=== PATIENT | male | born 1955 | race Caucasian/White ===

== ENCOUNTER 2020-07-06 15:17 | Outpatient (REF) | payer BC, SELFPAY ==
--- NOTE | 2020-07-06 15:24 | XR_ITS ---
EXAMINATION: XR LUMBOSACRAL SPINE CLINICAL INFORMATION: Back pain COMPARISON: None TECHNIQUE: Three views of the lumbosacral spine. FINDINGS: 5 nonrib-bearing lumbar type vertebral bodies are seen. Minimal 4 mm anterolisthesis of L4 on L5. Lower lumbar facet arthropathy, particularly on the right. Mild disc space narrowing at L5-S1. There is right lateral marginal osteophytosis across L2-3. No compression fracture. XR/XR lumbar spine 2-3V IMPRESSION: No acute osseous abnormality. Degenerative disc disease and facet arthropathy of the lower lumbar spine as described above.
== END 2020-07-06 15:18 | disposition home or self-care (01) ==
LOC: HO.XRAY 15:17
PROVIDERS: Visit Provider Internal Medicine
DX: M54.9 Dorsalgia, unspecified (principal)
CPT/HCPCS: 72100

== ENCOUNTER 2020-07-16 06:27 | Outpatient (REF) | payer BC, SELFPAY ==
[2020-07-16 11:15] LABS: MANUAL DIFF FLAG NO
[2020-07-16 11:25] LABS: Glucose Urine UA NEG (NEG); Leukocyte Esterase Urine NEG (NEG); Nitrite Urine NEG (NEG); PH 5.5 (5.0-8.0); Specific Gravity - Urine >= 1.030 (1.005-1.025); Urine Blood NEG (NEG); Urine Ketones NEG (NEG); Urine Protein NEG (NEG-TRACE)
[2020-07-16 11:26] LABS: Appearance Urine HAZY; Color Urine YELLOW
[2020-07-16 11:29] LABS: Basophils Absolute Auto 0.1 X10*3/uL (0.0-0.2); Eosinophils Absolute Auto 0.2 X10*3/uL (0.0-0.4); Hematocrit 43.3 % (42-52); Hemoglobin 14.1 g/dl (14.0-18.0); Imm Gran Abs Auto 0.02 X10*3/uL (0.00-0.03); Imm Gran Pct Auto 0.3 % (0.0-0.4); Lymphocytes Absolute Auto 2.2 X10*3/uL (1.2-4.9); Lymphocytes Percent Auto 37.5 % (20-40); Mean Corpuscular HGB Conc 32.6 g/dl (31.0-36.0); Mean Corpuscular Volume 98.4 fL (80-98); Mean Platelet Volume 11.4 fL (9.4-12.4); Monocytes Absolute Auto 0.6 X10*3/uL (0.1-1.2); Monocytes Percent Auto 10.4 % (2-11); Neutrophils Absolute Auto 2.8 X10*3/uL (2.0-8.3); Neutrophils Percent Auto 46.8 % (45-73); Platelet Count 201 X10*3/uL (160-400); Red Cell Distribution Width 13.2 % (11.0-16.0)
[2020-07-16 12:07] LABS: Alanine Aminotransferase 44 U/L (0-40); Albumin Level 4.4 g/dL (3.5-5.0); Alkaline Phosphatase 80 U/L (39-117); Anion Gap 16 (12-20); Aspartate Amino Transferase 26 U/L (5-37); Bilirubin Total 0.6 mg/dL (0.0-1.0); Blood Urea Nitrogen 19 mg/dL (9-16); Calcium 8.9 mg/dL (8.4-10.2); Carbon Dioxide 26 mmol/L (22-29); Chloride 105 mmol/L (96-108); Cholesterol 180 mg/dL; Estimated Glomerular Filt Rate > 60; Glucose Fasting 94 mg/dL (60-99); HDL Cholesterol 52 mg/dL; LDL Cholesterol Calculated 103 mg/dl; Potassium 4.5 mmol/l (3.3-5.1); Sodium 142 mmol/L (135-145); Triglycerides 128 mg/dL
== END 2020-07-16 06:28 | disposition home or self-care (01) ==
LOC: HO.HMGCLDS 06:27
PROVIDERS: PCP Internal Medicine; Visit Provider Internal Medicine
DX: Z00.00 Encounter for general adult medical examination without abnormal findings (principal); Z12.5 Encounter for screening for malignant neoplasm of prostate
CPT/HCPCS: 36415; 80053; 80061; 81003; 84153; 85025

== ENCOUNTER 2020-07-26 10:44 | Outpatient (REF) | payer BC, SELFPAY ==
--- NOTE | 2020-07-26 10:59 | XR_ITS ---
EXAMINATION: XR LUMBOSACRAL SPINE CLINICAL INFORMATION: Fall, trauma, pain COMPARISON: Radiographs lumbar spine 07/06/2020. TECHNIQUE: Three views of the lumbosacral spine. FINDINGS: Lumbosacral spine appears similar to recent exam 07/06/2020. There is normal lumbar segmentation with 5 nonrib-bearing lumbar vertebrae and probable incidental spina bifida occulta at S1. There is normal lumbar lordosis. No lumbar vertebral compression or destructive process. Again, there are degenerative facet changes L4-S1 and mild degenerative changes SI joints. There are scattered bridging osteophytes lower thoracic and lumbar spine again seen. Borderline grade 0-1 spondylolisthesis L4-L5 is again noted. XR/XR lumbar spine 2-3V IMPRESSION: 1. No acute abnormality when compared with recent exam 07/06/2020. 2. Variable degenerative changes lower thoracic and lumbosacral spine again seen. 3. Grade 0-1 spondylolisthesis L4-L5 stable.
== END 2020-07-26 10:45 | disposition home or self-care (01) ==
LOC: HO.XRAY 10:44
PROVIDERS: PCP Internal Medicine; Visit Provider Internal Medicine
DX: M54.9 Dorsalgia, unspecified (principal); Z91.81 History of falling
CPT/HCPCS: 72100

== ENCOUNTER 2020-10-06 08:03 | Day surgery (SDC) | payer BC, SELFPAY ==
[2020-09-30 12:58] VITALS: BMI 30.5
--- NOTE | 2020-10-04 14:53 | HO.ANESPROP2 ---
Documented by User: Leeanne Wellington 10/04/20 14:55 HPI - Anesthesia Eval Consult details Narrative: 64yo M for Colonoscopy +ETOH daily [facility] Past Medical History Medical History Elevated cholesterol Hx of concussion Low back pain Surgical History Surgical History H/O right knee surgery History of shoulder surgery Hx of colonoscopy Social History Social History Alcohol intake: current Alcohol intake frequency: 3 or more drinks per day Alcohol type: beer Smoking Status: Never smoker Use of substances other than those prescribed or required for medical reasons: No Advance Directives: No Advance Directives Information Provided: No Advance Directives on File: No Meds Allergies Allergy/AdvReac Type Severity Reaction Status Date / Time Sulfa (Sulfonamide Allergy Mild Rash Verified 09/30/20 12:52 Antibiotics) Home Medications Medication Instructions Recorded Confirmed Type atorvastatin 1 tab PO DAILY 09/30/20 09/30/20 History glucosamines, HCl, sulf,acetyl tab PO 09/30/20 History [Glucosamine Complex] multivitamin 1 tab PO DAILY 09/30/20 09/30/20 History Exam Exam Date and Time: October 04, 2020 1453 Height,Weight and Vital Signs: Height 6 ft Weight 102.058 kg Pertinent Lab Results Pertinent Lab Results: Laboratory Tests 07/16/20 07/16/20 06:40 06:40 WBC 6.0 Hgb 14.1 Hct 43.3 Plt Count 201 Sodium 142 Potassium 4.5 Chloride 105 Carbon Dioxide 26 BUN 19 H Creatinine 0.83 Assessment and Plan Assessment Anesthesia Assessment: Chart Reviewed Documented by User: Shawna Ayala 10/06/20 09:12 PMFSH Past Medical History Medical History Elevated cholesterol Hx of concussion Low back pain Surgical History Surgical History H/O right knee surgery History of shoulder surgery Hx of colonoscopy Social History Social History Alcohol intake: current Alcohol intake frequency: 3 or more drinks per day Alcohol type: beer Smoking Status: Never smoker Use of substances other than those prescribed or required for medical reasons: No Advance Directives: No Advance Directives Information Provided: No Advance Directives on File: No Meds Allergies Allergy/AdvReac Type Severity Reaction Status Date / Time Sulfa (Sulfonamide Allergy Mild Rash Verified 09/30/20 12:52 Antibiotics) Home Medications Medication Instructions Recorded Confirmed Type atorvastatin 1 tab PO DAILY 09/30/20 09/30/20 History glucosamines, HCl, sulf,acetyl tab PO 09/30/20 History [Glucosamine Complex] multivitamin 1 tab PO DAILY 09/30/20 09/30/20 History Exam Airway Mallampati Class: II TM Dist: >3cm Neck ROM: Full Assessment and Plan Assessment Anesthesia Assessment: Anesthesia Plan Discussed and Chart Reviewed Final Anesthetic Review NPO: Yes ASA Class: II Final Preanesthetic Review: No Changes in Pt Med Stat, Meds/Allgs Chart Reviewed, Consent Obtained/Reviewed and Anes Risks/Benef Reviewed Patient Risk: Low Procedure Risk: Low Assessment/Block/Sedation in SS: Assess/Block/Sedation-SS Anesthetic Plan Anesthetic Plan: MAC: Disposition: Standard PACU
[2020-10-06 08:35] VITALS: BP 149/82; PULSE 72; RESP 16; TEMP 36; O2SAT 98
[2020-10-06] MEDS: Lactated Ringers 1,000 ML 100 ML IVCONT (08:47)
--- NOTE | 2020-10-06 10:32 | PM.OP ---
Brief Operative Note Date of Service: 10/06/20 Pre-op diagnosis: Screening Post-op diagnosis: other (Colon polyps, Diverticulosis, Internal hemorrhoids) Procedure: Colonoscopy to cecum and TI with snare polypectomy x 2 Surgeon: Ben Morgan Anesthesia: MAC Estimated blood loss (mL): 3.0 Pathology: other (A. Proximal ascending colon polyp B. Transverse colon polyp) Condition: stable Disposition: PACU
[2020-10-06 10:33] VITALS: BP 141/79; PULSE 65; RESP 16; TEMP 36.1; O2SAT 98
--- NOTE | 2020-10-06 10:46 | OP_ITS ---
SURGEON: Ben Morgan MD INDICATIONS: Full consent has been obtained from him for this, including risks of bleeding and perforation. PREOPERATIVE DIAGNOSIS: Colorectal cancer screening. POSTOPERATIVE DIAGNOSIS: PROCEDURE PERFORMED: Colonoscopy to cecum and terminal ileum with snare polypectomy. ESTIMATED BLOOD LOSS: COMPLICATIONS: ANESTHESIA: Monitored anesthesia care. ASSISTANTS: SPECIMENS: POSTOPERATIVE DIAGNOSES: Colorectal cancer screening, colon polyps, diverticulosis, and internal hemorrhoids. DESCRIPTION OF PROCEDURE: The patient was placed in the left lateral decubitus position. The digital rectal exam revealed no abnormalities. The Olympus video pediatric colonoscope was entered into the rectum and advanced easily to the cecum. Once in the cecum, I did identify normal-appearing cecal pouch with appendiceal orifice and a normal-appearing ileocecal valve. The terminal ileum was cannulated and appeared normal. The scope was withdrawn back in the colon. The entire cecum and ileocecal valve appeared normal. The scope was slowly withdrawn assessing all mucosal surfaces carefully. Preparation was excellent. In the very proximal ascending colon, just beneath the ileocecal valve, was a flat, but raised approximately 10 to 12 mm polyp, which was snared and recovered by suction. The polypectomy site appeared clean, without any sign of residual polyp nor bleeding. In the transverse colon, was an approximately 6 to 8 mm polyp, which was snared and recovered by suction. The polypectomy site appeared clean, without any sign of residual polyp nor bleeding. I did not visualize any other polyps, colitis, nor angiodysplasia. There was a mild amount of sigmoid diverticulosis. In the rectum, scope was retroflexed visualizing internal hemorrhoids, but no other pathology. The rectal mucosa appeared normal. The scope was straightened out and withdrawn from the patient. He tolerated the procedure well and was returned to the recovery area in stable condition. IMPRESSION: 1. Colon polyps, status post snare polypectomy. 2. Diverticulosis. 3. Internal hemorrhoids. PLAN: The results of the pathology will be checked. If these are tubular adenoma, I would recommend a followup colonoscopy in 5 years. If they are only hyperplastic, I would recommend a followup colonoscopy in 10 years. He was advised not to use any aspirin or NSAIDs for 1 week. MD YOLANDA Donahue/ROSLYN / [id number]
[2020-10-06 10:48] VITALS: BP 158/87; PULSE 54; RESP 16; TEMP 36.1; O2SAT 98
--- NOTE | 2020-10-06 11:04 | HO.POSTANES ---
Post Anesthesia Evaluation Post Anesthesia Evaluation Vital Signs: Vital Signs Temp Pulse Resp BP Pulse Ox 10/06/20 10:48 97.0 F 54 16 158/87 H 98 10/06/20 10:33 97.0 F 65 16 141/79 H 98 10/06/20 08:35 96.8 F 72 16 149/82 H 98 Anesthesia: Monitored Mental Status: Awake Pain Control: Satisfactory Nausea/Vomiting: None Hydration: Adequate Anesthesia-Related Issues: No Anes. Related Issues
== END 2020-10-06 11:17 | disposition home or self-care (01) ==
PROVIDERS: PCP Internal Medicine; Visit Provider Internal Medicine
PROC: 0DJD8ZZ Inspection of Lower Intestinal Tract, Via Natural or Artificial Opening Endoscopic (ICD-10-PCS; CPT 45378; principal; 2020-10-06 09:10)
DX: Z12.11 Encounter for screening for malignant neoplasm of colon (principal); D12.2 Benign neoplasm of ascending colon; D12.3 Benign neoplasm of transverse colon; K57.30 Diverticulosis of large intestine without perforation or abscess without bleeding; K64.8 Other hemorrhoids; Z88.2 Allergy status to sulfonamides
CPT/HCPCS: 45385; 88305; J3010

== ENCOUNTER 2021-08-10 14:18 | Outpatient (REF) | payer BC, SELFPAY ==
[2021-08-10 15:54] LABS: Influenza A PCR NEGATIVE (Negative); Influenza B PCR NEGATIVE (Negative); Resp Syncy Virus RNA Qual PCR NEGATIVE (Negative); SARS COV2 PCR INHOUSE NEGATIVE (Negative)
== END 2021-08-10 14:19 | disposition home or self-care (01) ==
LOC: HO.LNP 14:18
PROVIDERS: Visit Provider Internal Medicine
DX: Z20.822 Contact with and (suspected) exposure to COVID-19 (principal)
CPT/HCPCS: 0241U

== ENCOUNTER 2021-09-21 08:52 | Outpatient (REF) | payer BC, SELFPAY ==
[2021-09-21 09:11] LABS: MANUAL DIFF FLAG NO
[2021-09-21 09:52] LABS: Basophils Absolute Auto 0.1 X10*3/uL (0.0-0.2); Eosinophils Absolute Auto 0.2 X10*3/uL (0.0-0.4); Eosinophils Percent Auto 3.7 % (0-4); Hematocrit 44.2 % (42.0-52.0); Hemoglobin 14.7 g/dl (14.0-18.0); Imm Gran Abs Auto 0.01 X10*3/uL (0.00-0.03); Imm Gran Pct Auto 0.2 % (0.0-0.4); Lymphocytes Absolute Auto 2.4 X10*3/uL (1.2-4.9); Lymphocytes Percent Auto 40.4 % (20-40); Mean Corpuscular HGB Conc 33.3 g/dl (31.0-36.0); Mean Corpuscular Volume 96.1 fL (80.0-98.0); Mean Platelet Volume 10.5 fL (9.4-12.4); Monocytes Absolute Auto 0.6 X10*3/uL (0.1-1.2); Monocytes Percent Auto 9.9 % (2-11); Neutrophils Absolute Auto 2.7 x10*3/uL (2.0-8.3); Neutrophils Percent Auto 44.8 % (45-73); Platelet Count 246 X10*3/uL (160-400); Red Cell Distribution Width 12.7 % (11.0-16.0); White Blood Count 5.9 X10*3/uL (4.8-10.8)
[2021-09-21 10:03] LABS: Alanine Aminotransferase 37 U/L (0-40); Albumin Level 4.3 g/dL (3.5-5.0); Alkaline Phosphatase 85 U/L (39-117); Anion Gap 12 (12-20); Aspartate Amino Transferase 24 U/L (5-37); Bilirubin Total 0.3 mg/dL (0.0-1.0); Blood Urea Nitrogen 17 mg/dL (9-16); C Reactive Protein 0.75 mg/dL (< or = 0.50); Calcium 10.2 mg/dL (8.4-10.2); Carbon Dioxide 28 mmol/L (22-29); Chloride 108 mmol/L (96-108); Cholesterol 186 mg/dL; Estimated Glomerular Filt Rate > 60; Glucose Fasting 111 mg/dL (60-99); HDL Cholesterol 44 mg/dL; LDL Cholesterol Calculated 124 mg/dl; Potassium 4.8 mmol/L (3.3-5.1); Sodium 143 mmol/L (135-145); Total Protein 7.3 g/dL (6.5-8.0); Triglycerides 94 mg/dL; Uric Acid 6.3 mg/dL (3.4-7.0)
[2021-09-21 10:10] LABS: Appearance Urine CLEAR; Color Urine YELLOW; Glucose Urine UA NEG (NEG); Leukocyte Esterase Urine NEG (NEG); Nitrite Urine NEG (NEG); PH 5.5 (5.0-8.0); Specific Gravity - Urine 1.025 (1.005-1.025); Urine Blood NEG (NEG); Urine Ketones NEG (NEG); Urine Protein NEG (NEG-TRACE)
[2021-09-21 10:28] LABS: Prostate Specific Antigen 0.32 ng/mL (<0.05-4.0)
== END 2021-09-21 08:53 | disposition home or self-care (01) ==
LOC: HO.LAB 08:52
PROVIDERS: PCP Internal Medicine; Visit Provider Internal Medicine
DX: E78.00 Pure hypercholesterolemia, unspecified (principal); M10.9 Gout, unspecified; Z86.010 Personal history of colon polyps
CPT/HCPCS: 36415; 80053; 80061; 81003; 84153; 84550; 85025; 86140

== ENCOUNTER 2022-12-19 11:51 | Outpatient (REF) | payer BC, SELFPAY ==
--- NOTE | ~2022-12-19 | XR_ITS ---
EXAMINATION: XR CHEST CLINICAL INFORMATION: Right chest and back pain. COMPARISON: Chest radiographs 01/15/2019, 05/22/2015 TECHNIQUE: 2 frontal views and 2 lateral views of the chest are obtained for 4 views. FINDINGS: No pneumothorax or pneumomediastinum. No pleural reaction or effusion. The lungs are clear. There is no airspace consolidation or effusion. Heart size normal. The hilar and mediastinal contours are normal. No acute bony abnormality. Again, there is mild thoracic curvature and multilevel mild degenerative disc changes thoracic spine. XR/XR chest 2V IMPRESSION: Unremarkable examination.
[2022-12-19 14:06] LABS: Anion Gap 14 (12-20); Blood Urea Nitrogen 13 mg/dL (9-16); C Reactive Protein 0.14 mg/dL (< or = 0.50); Calcium 9.6 mg/dL (8.4-10.2); Carbon Dioxide 25 mmol/L (22-29); Chloride 107 mmol/L (96-108); Estimated Glomerular Filt Rate > 60; Glucose Random 104 mg/dL (60-115); Potassium 4.7 mmol/L (3.3-5.1); Sodium 141 mmol/L (135-145)
[2022-12-19 14:09] LABS: Estimated Average Glucose 111 mg/dL; Hemoglobin A1c % 5.5 %
[2022-12-19 14:10] LABS: Erythrocyte Sedimentation Rate 8 MM/HR (0-15)
[2022-12-21 13:28] LABS: Lyme Abs Screen <0.90 index
== END 2022-12-19 11:52 | disposition home or self-care (01) ==
LOC: HO.LAB 11:51
PROVIDERS: PCP Internal Medicine; Visit Provider Internal Medicine
DX: R07.9 Chest pain, unspecified (principal); M54.9 Dorsalgia, unspecified; R73.03 Prediabetes
CPT/HCPCS: 36415; 71046; 80048; 83036; 85652; 86140; 86617; 86618

== ENCOUNTER 2023-06-11 16:16 | Outpatient (REF) | payer BC, SELFPAY ==
--- NOTE | ~2023-06-11 | XR_ITS ---
EXAMINATION: XR LUMBOSACRAL SPINE CLINICAL INFORMATION: Lower back pain COMPARISON: None available. TECHNIQUE: Three views of the lumbosacral spine. FINDINGS: There is normal lumbar lordosis. Grade 1 anterolisthesis L4-L5 is noted. Rest of the vertebral alignment is normal. There is moderate right L4-L5 facet joint hypertrophy and arthropathy. There is a right lateral bridging osteophyte L2-L3 disc level. No acute fracture, lytic or sclerotic process seen. SI joints are symmetrical and normal. The paravertebral soft tissues are normal. XR/XR lumbar spine 2-3V IMPRESSION: 1. Grade 1 anterolisthesis L4 over L5 with moderate right L4-L5 facet joint arthropathy. 2. There is a right lateral bridging osteophyte L2-L3 disc level.
[2023-06-11 16:29] LABS: MANUAL DIFF FLAG NO
[2023-06-11 16:59] LABS: Basophils Absolute Auto 0.1 X10*3/uL (0.0-0.2); Basophils Percent Auto 0.8 % (0-2); Eosinophils Absolute Auto 0.2 X10*3/uL (0.0-0.4); Eosinophils Percent Auto 1.8 % (0-4); Hematocrit 39.1 % (42.0-52.0); Hemoglobin 12.6 g/dl (14.0-18.0); Imm Gran Abs Auto 0.06 X10*3/uL (0.00-0.03); Imm Gran Pct Auto 0.5 % (0.0-0.4); Lymphocytes Absolute Auto 2.2 X10*3/uL (1.2-4.9); Lymphocytes Percent Auto 16.8 % (20-40); Mean Corpuscular HGB Conc 32.2 g/dl (31.0-36.0); Mean Corpuscular Hemoglobin 30.5 pg (27.0-33.0); Mean Corpuscular Volume 94.7 fL (80.0-98.0); Mean Platelet Volume 9.7 fL (9.4-12.4); Monocytes Absolute Auto 1.2 X10*3/uL (0.1-1.2); Monocytes Percent Auto 8.8 % (2-11); Neutrophils Absolute Auto 9.4 x10*3/uL (2.0-8.3); Neutrophils Percent Auto 71.3 % (45-73); Platelet Count 488 X10*3/uL (160-400); Red Blood Count 4.13 X10*6/uL (4.60-5.80); Red Cell Distribution Width 12.6 % (11.0-16.0); White Blood Count 13.1 X10*3/uL (4.8-10.8)
[2023-06-11 17:51] LABS: Alanine Aminotransferase 85 U/L (0-40); Albumin Level 3.6 g/dL (3.5-5.0); Alkaline Phosphatase 147 U/L (39-117); Anion Gap 16 (12-20); Aspartate Amino Transferase 41 U/L (5-37); Bilirubin Total 0.3 mg/dL (0.0-1.0); Blood Urea Nitrogen 14 mg/dL (9-16); Carbon Dioxide 25 mmol/L (22-29); Chloride 105 mmol/L (96-108); Estimated Glomerular Filt Rate > 60; Glucose Random 103 mg/dL (60-115); Potassium 4.4 mmol/L (3.3-5.1); Sodium 142 mmol/L (135-145); Total Protein 7.5 g/dL (6.5-8.0)
== END 2023-06-11 16:17 | disposition home or self-care (01) ==
LOC: HO.LAB 16:16
PROVIDERS: PCP Internal Medicine; Visit Provider Internal Medicine
DX: M54.50 Low back pain, unspecified (principal)
CPT/HCPCS: 36415; 72100; 80053; 85025; 86140

== ENCOUNTER 2023-06-14 15:20 | Outpatient (REF) | payer BC, SELFPAY ==
--- NOTE | ~2023-06-14 | US_ITS ---
EXAMINATION: US ABDOMEN COMPLETE CLINICAL INFORMATION: Abdominal pain, elevated LFTs. COMPARISON: None available. TECHNIQUE: Real-time imaging of the abdominal viscera. Limited visualization due to bowel gas. FINDINGS: PANCREAS: Poorly visualized. ABDOMINAL AORTA: Limited visualization. Imaged portions of mid abdominal aorta are nonaneurysmal. INFERIOR VENA CAVA: Visualized portions are normal. LIVER: Increased parenchymal heterogeneity and echogenicity which could be associated with hepatic steatosis or hepatocellular disease and substantially limits visualization. Borderline hepatomegaly, 17.6 cm. GALLBLADDER: No gallstones. No gallbladder wall thickening. COMMON BILE DUCT: Normal in caliber measuring 0.4 cm in diameter. RIGHT KIDNEY: No hydronephrosis. No renal calculi. Renal cortical thickness is normal. Limited visualization. The kidney measures 11.1 cm in maximum dimension. LEFT KIDNEY: No hydronephrosis. No renal calculi. Renal cortical thickness is normal. Limited visualization. The kidney measures 10.4 cm in maximum dimension. SPLEEN: Normal. The spleen measures 10.2 cm in maximum dimension. FREE FLUID: None. US/US abdomen complete IMPRESSION: 1. Increased hepatic parenchymal heterogeneity and echogenicity which could be associated with hepatic steatosis or hepatocellular disease and substantially limits visualization. Borderline hepatomegaly, 17.6 cm. 2. Gallbladder surgically absent.
== END 2023-06-14 15:21 | disposition home or self-care (01) ==
LOC: HO.US 15:20
PROVIDERS: PCP Internal Medicine; Visit Provider Internal Medicine
DX: R10.84 Generalized abdominal pain (principal); R94.5 Abnormal results of liver function studies
CPT/HCPCS: 76700

== ENCOUNTER 2023-08-06 09:17 | Outpatient (AMB) | payer BC, SELFPAY ==
--- NOTE | 2023-08-06 09:24 | MHC.OFFVIS ---
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 He was recently having lot of tiredness and that led to further workup. He underwent apparently Hematology workup which led to diagnosis of lymphoma per patient and . Pre chemotherapy, he underwent echocardiogram that showed LV dysfunction as well as wall motion abnormalities and hence he has been referred here. There is no history of any coronary disease or myocardial infarction or cardiomyopathy or in fact any other cardiac issues. He is extremely weak because of the lymphoma and he is not able to walk at all. He is coming in a wheelchair. Otherwise, within limits of his activity has not noticed any chest pain or in fact any cardiac symptoms at any point. [facility] Medical History (Updated 08/06/23 @ 10:01 by Hood Burnett MD) Lymphoma Hx of concussion Low back pain Elevated cholesterol Surgical History H/O right knee surgery History of shoulder surgery Hx of colonoscopy Family History (Updated 08/06/23 @ 09:29 by Taylor Dowd) Mother No problems noted. Father Stomach cancer Social History Alcohol intake: current Alcohol intake frequency: 3 or more drinks per day Alcohol type: beer Review of Systems Const Denies chills, Denies daytime sleepiness, Denies fatigue, Denies fever(s), Denies frequent falls, Denies night sweats, Denies snoring, Denies weakness, Denies weight gain and Denies weight loss Eyes Denies loss of vision ENT Denies dizziness and Denies hearing loss Card Denies chest pain, Denies chest pain with activity, Denies syncope, Denies rapid heart rate, Denies edema, Denies claudication, Denies leg edema, Denies lightheadedness, Denies palpitations, Denies dyspnea on exertion and Denies orthopnea Resp Denies cough, Denies excessive phlegm production, Denies dyspnea on exertion, Denies snoring and Denies wheezing GI Denies abdominal pain, Denies hematochezia, Denies change in bowel habits, Denies change in stool character, Denies heartburn, Denies nausea and Denies vomiting Denies hematuria, Denies dysuria and Denies urinary frequency Musc Denies arthralgias, Denies muscle weakness, Denies numbness and Denies tingling Skin/Breast Denies nail changes and Denies rash Neuro Denies Abnormal speech present, Denies dizziness, Denies syncope, Denies frequent falls, Denies loss of vision, Denies memory loss, Denies numbness, Denies tingling and Denies weakness Psych Denies depression and Denies memory loss Endo Denies fatigue and Denies palpitations Aller/Immun Denies wheezing Physical Exam Vital Signs: Last Vital Signs Pulse 91 08/06/23 09:30 BP 100/54 L 08/06/23 09:30 Const General: comfortable and no acute distress Orientation/consciousness: patient oriented x3 HEENT Other: Unremarkable Head: Yes normal to inspection Neck Neck: Yes normal visual inspection Chest Chest palpation & inspection: normal inspection of the chest Resp Auscultation: clear to auscultation bilaterally Cardio Palpation: normal PMI Heart sounds: S1 normal heart sound present, S2 normal heart sound present, no gallops, no murmurs and no rubs GI Palpation (GI): Soft to palpation Back/Spine/Pelvis Other: unremarkable Skin General skin exam: no rashes or lesions noted Neuro General: patient oriented x3 Speech: No Abnormal speech present Extrem General: Yes normal to inspection Psych Mental Status: mental status grossly normal Office Procedures EKG Details: EKG with sinus rhythm at 91/Min; cannot exclude old anterior or inferior infarct; normal [place]. [id number], Complete Assessment & Plan Assessment & Plan (1) Cardiomyopathy: Code(s): I42.9 - Cardiomyopathy, unspecified Qualifiers: Cardiomyopathy type: unspecified Qualified Code(s): I42.9 - Cardiomyopathy, unspecified (2) Lymphoma: Code(s): C85.90 - Non-Hodgkin lymphoma, unspecified, unspecified site (3) Chemotherapy follow-up examination: Code(s): Z09 - Encounter for follow-up examination after completed treatment for conditions other than malignant neoplasm Plan Newly diagnosed lymphoma requiring chemotherapy. Echocardiogram last week from [facility] [place] with LVEF of 40-45%. Distal anteroseptal wall severely hypokinetic. Inferior/inferolateral wall hypokinetic. Diminished strain at 13.4%. Mild to moderately calcified aortic valve but no stenosis. In a prior study from 2015, LVEF of 60-65%. He needs further workup for underlying coronary disease, especially as he needs to start chemotherapy soon. Recommend diagnostic catheterization in this regard. Discussed with patient as well as significant other they agree. We will try to schedule as well as possible. Follow-up after the above. Orders: Orders Cardiac Cath LT Diagnostic Today I25.10 - Atherosclerotic heart disease of [place] coronary artery without angina pectoris, I42.9 - Cardiomyopathy, unspecified Complete Blood Count no Diff Today I42.9 - Cardiomyopathy, unspecified Basic Metabolic Panel Today I42.9 - Cardiomyopathy, unspecified Prothrombin Time INR Today I25.10 - Atherosclerotic heart disease of [place] coronary artery without angina pectoris, I42.9 - Cardiomyopathy, unspecified Coding Level of Care Code New Pt Level 5 (44220) Diagnoses Cardiomyopathy, unspecified type I42.9 Cardiomyopathy type: unspecified Lymphoma C85.90 Chemotherapy follow-up examination Z09 CPT Codes EKG - CPT: 92312-[id number], Complete ([id number])
[2023-08-06 09:30] VITALS: BP 100/54; PULSE 91
== END 2023-08-06 09:57 | disposition home or self-care (01) ==
PROVIDERS: PCP Internal Medicine; Visit Provider Internal Medicine
DX: I42.9 Cardiomyopathy, unspecified (principal); C85.90 Non-Hodgkin lymphoma, unspecified, unspecified site; Z09 Encounter for follow-up examination after completed treatment for conditions other than malignant neoplasm
CPT/HCPCS: 93010; 99214

== ENCOUNTER 2023-08-06 09:17 | Outpatient (REF) | payer BC, SELFPAY ==
[2023-08-06 10:55] LABS: Hematocrit 33.3 % (42.0-52.0); Hemoglobin 10.5 g/dl (14.0-18.0); Mean Corpuscular HGB Conc 31.5 g/dl (31.0-36.0); Mean Corpuscular Hemoglobin 28.1 pg (27.0-33.0); Mean Platelet Volume 9.9 fL (9.4-12.4); Platelet Count 310 X10*3/uL (160-400); Red Blood Count 3.74 X10*6/uL (4.60-5.80); Red Cell Distribution Width 15.9 % (11.0-16.0); White Blood Count 12.5 X10*3/uL (4.8-10.8)
[2023-08-06 11:01] LABS: INTERNATIONAL NORM RATIO 1.4 (0.9-1.1); Prothrombin Time 16.6 SEC (11.1-13.3)
[2023-08-06 11:29] LABS: Anion Gap 15 (12-20); Blood Urea Nitrogen 38 mg/dL (9-16); Calcium 12.3 mg/dL (8.4-10.2); Carbon Dioxide 23 mmol/L (22-29); Chloride 103 mmol/L (96-108); Estimated Glomerular Filt Rate 52; Glucose Random 118 mg/dL (60-115); Potassium 4.6 mmol/L (3.3-5.1); Sodium 136 mmol/L (135-145)
== END 2023-08-06 09:18 | disposition home or self-care (01) ==
LOC: HO.LAB 09:17
PROVIDERS: PCP Internal Medicine; Visit Provider Internal Medicine
DX: I42.9 Cardiomyopathy, unspecified (principal); I25.10 Atherosclerotic heart disease of native coronary artery without angina pectoris; C85.90 Non-Hodgkin lymphoma, unspecified, unspecified site
CPT/HCPCS: 36415; 80048; 85027; 85610; 93005

== ENCOUNTER → 2023-08-10 23:59 | Outpatient (BNV) | payer BC, SELFPAY | PROVIDERS: PCP Internal Medicine; Visit Provider Internal Medicine Cardiovascular Disease | DX: I42.9 Cardiomyopathy, unspecified (principal) | CPT/HCPCS: 93458; 99152 ==

== ENCOUNTER 2023-08-24 13:05 | Outpatient (AMB) | payer BC, SELFPAY ==
[2023-08-24 13:10] VITALS: BP 100/62; PULSE 56
--- NOTE | 2023-08-24 13:10 | MHC.OFFVIS ---
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 Today he reports that he has ongoing fatigue and weakness from his lymphoma and chemotherapy treatment. He is currently sitting in a wheelchair. He states he gets very tired with walking. He denies any chest discomfort at rest or with activity. Mild shortness of breath with activity. No heart palpitations, presyncope, syncope, falls. He does have lightheadedness when standing up quickly. No PND, orthopnea or edema. Taking all meds as directed. Right radial catheterization site is feeling good. is present. [facility] Medical History (Updated 08/24/23 @ 13:20 by Lucia Perera, CELINA-C) Lymphoma Hx of concussion Low back pain Elevated cholesterol Surgical History (Updated 08/24/23 @ 16:28 by Lucia Perera NP-C) H/O right knee surgery History of shoulder surgery Hx of colonoscopy Family History Mother No problems noted. Father Stomach cancer Social History Alcohol intake: current Alcohol intake frequency: 3 or more drinks per day Alcohol type: beer Review of Systems ENT Reports dizziness Card Denies chest pain, Denies chest pain at rest, Denies chest pain with activity, Denies rapid heart rate, Denies pedal edema, Denies edema, Denies leg edema, Denies lightheadedness, Denies palpitations, Denies dyspnea, Denies dyspnea on exertion and Denies orthopnea Resp Denies cough, Denies dyspnea and Denies dyspnea on exertion GI Denies hematochezia and Denies change in stool character Musc Denies abnormal gait, Reports limited range of motion, Reports muscle cramps, Denies muscle weakness, Denies numbness, Denies radiating pain into limb, Denies stiffness and Denies tingling Neuro Denies abnormal gait, Reports dizziness, Denies numbness and Denies tingling Endo Denies palpitations Physical Exam Vital Signs: Last Vital Signs Pulse 56 08/24/23 13:10 BP 100/62 08/24/23 13:10 Const General: cooperative, comfortable and no acute distress Orientation/consciousness: patient oriented x3 Neck Neck: Yes normal visual inspection and Yes no JVD Resp Effort & Inspection: normal respiratory effort Auscultation: clear to auscultation bilaterally, no crackles, no rales, no rhonchi and no wheezes Cardio Jugular venous distension: no JVD Rate: regular rate Rhythm: regular rhythm Heart sounds: S1 normal heart sound present, S2 normal heart sound present, no murmurs and no rubs Neuro General: patient oriented x3 Extrem General: Yes normal to inspection and No no pedal edema Psych Appearance: grossly normal Mental Status: mental status grossly normal Speech and movement: Normal speech and movement present Assessment & Plan Assessment & Plan (1) Cardiomyopathy: Code(s): I42.9 - Cardiomyopathy, unspecified Qualifiers: Cardiomyopathy type: unspecified Qualified Code(s): I42.9 - Cardiomyopathy, unspecified Plan: Recent finding of cardiomyopathy. Echocardiogram done 08/01/23 at [facility] shows EF 40-45%, distal anterior septal severely hypokinetic, inferior and inferior lateral hypokinetic, AV calcification with no stenosis. Last prior known echo 2014 showed normal EF. He denies any chest discomfort at rest or with activity. He does have a diagnosis of lymphoma and has begun chemotherapy recently. He has generalized weakness and fatigue. He underwent a cardiac catheterization for further evaluation showing only minimal luminal irregularities in the LAD and RCA. Diagnosis of nonischemic cardiomyopathy reviewed with him. Cause for his cardiomyopathy not clearly identified. He does admit to drinking alcohol routinely however has had less in the last few weeks due to his chemotherapy. This can contribute to his reduced EF. He has a diagnosis of sleep apnea and uses CPAP at night. He does state his settings have not been adjusted in many years. He denies feeling any heart palpitations that could indicate arrhythmia. He runs a low blood pressure, currently 100/62 with heart rate 56. Unable to safely at neurohormonal modulation at this time. He has no clinical signs of decompensated heart failure on examination. Spent time reviewing signs and symptoms of heart failure and instructed to call if any concerning symptoms. Will arrange for cardiology follow-up in 3 months, sooner if needed to reassess condition. Emergency care if ever needed for symptoms. (2) S/P cardiac catheterization: Comment: 08/10/2023, left main and left circumflex normal, lad and RCA minimal luminal irregularities, EF 40% Code(s): Z98.890 - Other specified postprocedural states Plan: Right radial catheterization site healing well, easily palpable right radial pulse Plan Time spent on chart review, documentation, interview and assessment Coding Level of Care Code Est Pt Level 4 (15743) Diagnoses Cardiomyopathy, unspecified type I42.9 Cardiomyopathy type: unspecified S/P cardiac catheterization Z98.890 Time Spent (min) 28
== END 2023-08-24 13:42 | disposition home or self-care (01) ==
PROVIDERS: PCP Internal Medicine; Visit Provider Nurse Practitioner Family
DX: I42.9 Cardiomyopathy, unspecified (principal); Z98.890 Other specified postprocedural states
CPT/HCPCS: 99214

== ENCOUNTER → 2023-08-24 13:05 | Outpatient (BNVA) | payer BC, SELFPAY | PROVIDERS: PCP Internal Medicine; Visit Provider Nurse Practitioner Family ==

== ENCOUNTER 2023-11-14 13:41 | Outpatient (AMB) | payer BC, SELFPAY ==
--- NOTE | 2023-11-14 13:43 | A.OFFVIS_ITS ---
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 Few months back, he was seen in consultation regarding abnormal echocardiogram. He was having lot of tiredness that led to further workup. He was then diagnosed with lymphoma. Pre chemotherapy echocardiogram showed LV dysfunction/wall motion abnormalities. Subsequently, he underwent cardiac catheterization but no significant findings. Otherwise, he states he is feeling fine. He is going through chemotherapy, but overall significantly better than before and he states he is also responding well to the medications. From cardiac, no specific symptoms. [facility] Medical History (Updated 11/14/23 @ 14:13 by Hood Burnett MD) Lymphoma Hx of concussion Low back pain Elevated cholesterol Surgical History H/O right knee surgery History of shoulder surgery Hx of colonoscopy Family History Mother No problems noted. Father Stomach cancer Social History Alcohol intake: current Alcohol intake frequency: 3 or more drinks per day Alcohol type: beer Review of Systems Const Denies weakness ENT Denies dizziness Card Denies chest pain, Denies chest pain with activity, Denies syncope, Denies rapid heart rate, Denies pedal edema, Denies edema, Denies leg edema, Denies lighth eadedness, Denies palpitations, Denies dyspnea, Denies dyspnea on exertion and Denies orthopnea Resp Denies cough, Denies dyspnea and Denies dyspnea on exertion GI Denies hematochezia and Denies change in stool character Musc Denies abnormal gait, Denies muscle cramps, Denies muscle weakness, Denies numbness, Denies radiating pain into limb and Denies tingling Neuro Denies abnormal gait, Denies dizziness, Denies syncope, Denies numbness, Denies tingling and Denies weakness Endo Denies palpitations Physical Exam Vital Signs: Last Vital Signs Pulse 101 H 11/14/23 13:44 BP 116/66 11/14/23 13:44 BMI result Body Mass Index 29.9 Const General: comfortable and no acute distress Orientation/consciousness: patient oriented x3 HEENT Other: Unremarkable Head: Yes normal to inspection Neck Neck: Yes normal visual inspection Chest Chest palpation & inspection: normal inspection of the chest Resp Auscultation: clear to auscultation bilaterally Cardio Palpation: normal PMI Heart sounds: S1 normal heart sound present, S2 normal heart sound present, no gallops, no murmurs and no rubs GI Palpation (GI): Soft to palpation Back/Spine/Pelvis Other: unremarkable Skin General skin exam: no rashes or lesions noted Neuro General: patient oriented x3 Extrem General: Yes normal to inspection Psych Mental Status: mental status grossly normal Office Procedures EKG Details: EKG with atrial fibrillation rate of 101/Min. [id number], Complete Assessment & Plan Assessment & Plan (1) Cardiomyopathy: Code(s): I42.9 - Cardiomyopathy, unspecified Qualifiers: Cardiomyopathy type: unspecified Qualified Code(s): I42.9 - Cardiomyopathy, unspecified (2) Atrial fibrillation: Code(s): I48.91 - Unspecified atrial fibrillation (3) Lymphoma: Code(s): C85.90 - Non-Hodgkin lymphoma, unspecified, unspecified site (4) Chemotherapy follow-up examination: Code(s): Z09 - Encounter for follow-up examination after completed treatment for conditions other than malignant neoplasm Plan [place] [facility] [place]F of 40-45%. Distal anteroseptal wall severely hypokinetic. Inferior/inferolateral wall hypokinetic. Diminished strain at 13.4%. Mild to moderately calcified aortic valve but no stenosis. In a prior study from 2015, LVEF of 60-65%. Cardiac catheterization with minimal irregularities in LAD and RCA but otherwise normal coronary arteries. By EKG today, in atrial fibrillation. Duration unclear as he was in sinus rhythm few months back. Overall, cardiomyopathy of nonischemic nature. Findings discussed with patient and . He already has lowish blood pressures. We can try a very small dose of beta-shruthi. Need to discuss with Oncology if anticoagulation is okay. If so, then start Eliquis. Can repeat echocardiogram for LV function. Holter monitor. Possible cardioversion in few weeks if anticoagulation is feasible. Orders: Orders CA echo transthoracic complete Today I42.9 - Cardiomyopathy, unspecified, I48.91 - Unspecified atrial fibrillation ECG 3 day holter monitor Today R00.2 - Palpitations Medications: New metoprolol tartrate 12.5 mg (1/2 x 25 mg) PO BID 90 tabs 3RF 90 days Coding Level of Care Code Est Pt Level 4 (65208) Diagnoses Cardiomyopathy, unspecified type I42.9 Cardiomyopathy type: unspecified Atrial fibrillation I48.91 Lymphoma C85.90 Chemotherapy follow-up examination Z09 CPT Codes EKG - CPT: 93660-[id number], Complete ([id number])
[2023-11-14 13:44] VITALS: BP 116/66; PULSE 101; BMI 29.9
== END 2023-11-14 14:29 | disposition home or self-care (01) ==
PROVIDERS: PCP Internal Medicine; Visit Provider Internal Medicine
DX: I42.9 Cardiomyopathy, unspecified (principal); I48.91 Unspecified atrial fibrillation; C85.90 Non-Hodgkin lymphoma, unspecified, unspecified site; Z09 Encounter for follow-up examination after completed treatment for conditions other than malignant neoplasm
CPT/HCPCS: 93010; 99214

== ENCOUNTER → 2023-11-14 13:41 | Outpatient (BNVA) | payer BC, SELFPAY | PROVIDERS: PCP Internal Medicine; Visit Provider Internal Medicine | DX: I42.9 Cardiomyopathy, unspecified (principal); I48.91 Unspecified atrial fibrillation; C85.90 Non-Hodgkin lymphoma, unspecified, unspecified site | CPT/HCPCS: 93005 ==

== ENCOUNTER → 2023-11-29 13:02 | Outpatient (REF) | payer BC, SELFPAY ==
--- NOTE | 2023-11-29 13:05 | CA_ITS ---
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 Normal LV systolic function with LVEF of 60 65% 2. Normal cardiac valvular with Doppler 3. Normal RV systolic pressure 4. Mildly dilated ascending aorta at 4.2 cm 5. No pericardial effusion Findings Left Ventricle Normal left ventricular size, thickness, and systolic function. The visually estimated ejection fraction is between 60-65%. Spectral Doppler is indicative of a normal filling pattern.Peak GLS is -18.5%, within normal limits. Right Ventricle Normal right ventricular cavity size and systolic function. Atria The left atrium is mildly dilated. There is no evidence of interatrial shunt. The right atrium is normal in size. Aortic Valve There is mild calcification of the aortic valve. There is mild thickening of the aortic valve. There is no aortic valve stenosis. There is no aortic valve regurgitation. Mitral Valve Normal mitral valve structure and function. There is trace mitral valve regurgitation. There is no mitral valve stenosis. Pulmonic Valve The pulmonic valve is likely normal. There is trace pulmonic valve regurgitation. Tricuspid Valve Normal tricuspid valve structure. There is trace tricuspid valve regurgitation. The right ventricular systolic pressure is normal. The right ventricular systolic pressure is 22 mmHg. Normal right atrial pressure. There is no evidence of pulmonary hypertension. Great Vessels The pulmonary artery was not well visualized. There is mild dilatation of the ascending aorta measuring 4.20 cm. There is no evidence of plaque in the aorta. Venous The inferior vena cava is normal in size and collapses greater than 50% with inspiration. Pericardium/Pleural There is no evidence of pericardial effusion. Prior Study Comparison No previous study in the last 5 years for comparison Measurements 2D Linear Measurements IVSd: 1.31 0.6-0.9/0.6-1.0 cm LVIDd: 4.59 3.9-5.3/4.2-5.9 cm LVIDd Index: 2.07 2.4-3.2/2.2-3.1 cm/m2 LVIDs: 2.38 2.0-3.6 cm LVPWd: 1.18 0.7-1.1 cm LA Diam: 4.10 2.7-3.8/3.0-4.0 cm LAIDs Index: 1.85 1.5-2.3 cm/m2 LV Mass: 268.52 67-162/88-224 g LV Mass Index: 120.95 43-95/49-115 g/m2 LVOT Diam: 2.50 3.0+(-)1.3 cm 2D Systolic Function EF 4C: 64.00 >55% EF 2C: 60.20 >55% EF BiP: 63.10 >55% Mitral Valve MV Pk E: 0.96 MV PK A: 0.82 MV Decel Time: 216.00 E/A: 1.20 E'Lateral: 9.57 E'Medial: 9.36 E/E' Med: 10.20 E/E' Lat: 10.00 PHT: 63.00 MVA PHT: 3.49 Decel [place]: 4.43 Aortic Valve AoV Pk Scooby: 1.71 AoV Mn Scooby: 1.23 AoV VTI: 0.40 AoV Pk Grad: 12.00 Aov Mn Grad: 7.00 CADE Cont.VTI: 3.38 LVOT LVOT Pk Scooby: 1.10 LVOT Mn Scooby: 0.85 LVOT VTI: 0.27 LVOT Pk Grad: 5.00 LVOT Mn Grad: 3.00 LVOT Diam: 2.50 LVOT Area: 4.91 Diastolic Function MV Pk E: 0.96 MV Pk A: 0.82 E/A: 1.20 E'Medial: 9.36 E/E' Med: 10.20 E' Laterial: 9.57 E/E' Lat: 10.00 Right Ventricle TAPSE (mm): 22.80 TVS' Scooby: 12.90 Tricuspid Valve TR Pk Scooby: 2.17 TR Pk Grad: 19.00 RA Press: 3.00 RVSP: 22.00 Great Vessels Aorta Sinus of Valsalva: 3.90 2.0-3.5 cm Ao Asc: 4.20 2.1-3.4 cm Pulmonary Valve PV Pk Scooby: 0.98 Peak PV Grad: 4.00 Updated in Other Vendor System with Status of Final Andrew Chanel MD electronically signed on 11/30/2023 1:04:31 PM with status of Final
--- NOTE | 2023-11-29 13:05 | HM_ITS ---
Conclusion: 1. Patient was monitored for total period of 3 days 2. Baseline was normal sinus rhythm with average heart of 77 beats per minute 3. Intermittent frequent episodes of atrial fibrillation with total burden of 26% with longest episode lasting 20 hours and 40 minutes 4. Rare PACs noted while in sinus rhythm 5. No significant pauses 6. No patient reported events MTDD
== END ==
LOC: HO.CARD 13:02
PROVIDERS: PCP Internal Medicine; Visit Provider Internal Medicine
DX: I42.9 Cardiomyopathy, unspecified (principal); I48.91 Unspecified atrial fibrillation; R00.2 Palpitations
CPT/HCPCS: 93242; 93306; 93356

== ENCOUNTER → 2023-11-29 13:05 | Outpatient (BNV) | payer BC, SELFPAY | PROVIDERS: PCP Internal Medicine; Visit Provider Internal Medicine Cardiovascular Disease | DX: I48.91 Unspecified atrial fibrillation (principal) | CPT/HCPCS: 93244; 93306; 93356 ==

== ENCOUNTER → 2023-12-17 10:53 | Outpatient (BNVA) | payer BC, SELFPAY | PROVIDERS: PCP Internal Medicine; Visit Provider Internal Medicine ==

== ENCOUNTER 2023-12-17 11:00 | Outpatient (AMB) | payer BC, SELFPAY ==
[2023-12-17 11:33] VITALS: BP 132/68; PULSE 87; O2SAT 99; BMI 29.8
--- NOTE | 2023-12-17 11:33 | MHC.OFFVIS ---
Vital Signs 12/17/23 11:33 Height 6 ft Weight 220 lb BMI 29.8 BP 132/68 Blood Pressure Location Lt brachial Position Sitting Pulse 87 Pulse Source Pulse Oximeter Pulse Oximetry (%) 99 Oxygen Delivery Method Room Air Intake Visit Reasons: 4 wk s/p echo/ holter Allergies Sulfa (Sulfonamide Antibiotics) Allergy (Mild, Verified 11/14/23 13:45) Rash Medication List - Last Reconciled 12/17/23 by Hood Burnett MD apixaban (Eliquis) 5 mg PO BID atorvastatin 10 mg PO DAILY glucosamines, HCl, sulf,acetyl 1 gram tabs PO metoprolol tartrate 12.5 mg (1/2 x 25 mg) PO BID 90 days HPI Comments Details: Anuj returns for follow-up. Few months back, he was seen in consultation regarding abnormal echocardiogram. He was having lot of tiredness that led to further workup. He was then diagnosed with lymphoma. Pre chemotherapy echocardiogram showed LV dysfunction/wall motion abnormalities. Subsequently, he underwent cardiac catheterization but no significant findings. Then EKG performed during office visit showed atrial fibrillation. He underwent Holter monitor that also confirmed intermittent atrial fibrillation. He has on a small dose of beta-blockers and also on Eliquis. He states that he is actually doing quite well. No cardiac symptoms whatsoever. Also, per patient, he is doing good from the lymphoma standpoint and responded well to chemo. ON LICENSE OF [facility] Medical History (Updated 12/17/23 @ 12:03 by Hood Burnett MD) JONATHAN on CPAP Lymphoma Hx of concussion Low back pain Elevated cholesterol Surgical History H/O right knee surgery History of shoulder surgery Hx of colonoscopy Family History Mother No problems noted. Father Stomach cancer Social History Alcohol intake: current Alcohol intake frequency: 3 or more drinks per day Alcohol type: beer Review of Systems Const Denies weakness ENT Denies dizziness Card Denies chest pain, Denies chest pain with activity, Denies syncope, Denies rapid heart rate, Denies pedal edema, Denies edema, Denies leg edema, Denies lightheadedness, Denies palpitations, Denies dyspnea, Denies dyspnea on exertion and Denies orthopnea Resp Denies cough, Denies dyspnea and Denies dyspnea on exertion GI Denies hematochezia and Denies change in stool character Musc Denies abnormal gait, Denies muscle cramps, Denies muscle weakness, Denies numbness, Denies radiating pain into limb and Denies tingling Neuro Denies abnormal gait, Denies dizziness, Denies syncope, Denies numbness, Denies tingling and Denies weakness Endo Denies palpitations Physical Exam Vital Signs: Last Vital Signs Pulse 87 12/17/23 11:33 BP 132/68 12/17/23 11:33 Pulse Ox 99 12/17/23 11:33 Oxygen Delivery Method Room Air 12/17/23 11:33 BMI result Body Mass Index 29.8 Const General: comfortable and no acute distress Orientation/consciousness: patient oriented x3 HEENT Other: Unremarkable Head: Yes normal to inspection Neck Neck: Yes normal visual inspection Chest Chest palpation & inspection: normal inspection of the chest Resp Auscultation: clear to auscultation bilaterally Cardio Palpation: normal PMI Heart sounds: S1 normal heart sound present, S2 normal heart sound present, no gallops, no murmurs and no rubs GI Palpation (GI): Soft to palpation Back/Spine/Pelvis Other: unremarkable Skin General skin exam: no rashes or lesions noted Neuro General: patient oriented x3 Extrem General: Yes normal to inspection Psych Mental Status: mental status grossly normal Assessment & Plan Assessment & Plan (1) Cardiomyopathy: Code(s): I42.9 - Cardiomyopathy, unspecified Category: Medical Qualifiers: Cardiomyopathy type: unspecified Qualified Code(s): I42.9 - Cardiomyopathy, unspecified Plan: Initial echocardiogram showed LV dysfunction but follow-up study shows recovery of LVEF. Clinically does not have any symptoms or signs of cardiomyopathy or congestive heart failure. Cardiac catheterization with minimal irregularities in LAD and RCA but otherwise normal coronary arteries. Possible stress-induced related to lymphoma but not clear. (2) Atrial fibrillation: Code(s): I48.91 - Unspecified atrial fibrillation Category: Medical Plan: EKG last visit showed atrial fibrillation. Subsequently, Holter shows intermittent atrial fibrillation with a burden of 26%. Continue low-dose beta-blockers, Eliquis. We discussed about these today. (3) Lymphoma: Code(s): C85.90 - Non-Hodgkin lymphoma, unspecified, unspecified site Category: Medical Plan: Per patient, respond well to chemo and doing good. (4) Chemotherapy follow-up examination: Code(s): Z09 - Encounter for follow-up examination after completed treatment for conditions other than malignant neoplasm Category: Medical (5) JONATHAN on CPAP: Code(s): G47.33 - Obstructive sleep apnea (adult) (pediatric) Category: Medical Plan: Continue CPAP. (6) Ascending aorta dilatation: Code(s): I77.810 - Thoracic aortic ectasia Category: Medical Plan: Ascending aortic size 4.2 cm. For his height and weight probably okay. We can recheck in a year or so. Plan x Orders: Orders ECG 7 day holter monitor 6 Months I48.91 - Unspecified atrial fibrillation
== END 2023-12-17 11:54 | disposition home or self-care (01) ==
PROVIDERS: Family Provider Internal Medicine; PCP Internal Medicine; Visit Provider Internal Medicine
DX: I42.9 Cardiomyopathy, unspecified (principal); I48.91 Unspecified atrial fibrillation; C85.90 Non-Hodgkin lymphoma, unspecified, unspecified site; Z09 Encounter for follow-up examination after completed treatment for conditions other than malignant neoplasm; G47.33 Obstructive sleep apnea (adult) (pediatric); I77.810 Thoracic aortic ectasia
CPT/HCPCS: 99214

== ENCOUNTER 2024-03-17 14:58 | Outpatient (REF) | payer BC, SELFPAY ==
--- NOTE | ~2024-03-17 | XR_ITS ---
EXAMINATION: XR LUMBOSACRAL SPINE CLINICAL INFORMATION: Pain COMPARISON: Lumbar spine x-rays 06/11/2023 TECHNIQUE: Three views of the lumbosacral spine. FINDINGS: 5 nonrib-bearing lumbar vertebral bodies are visualized. Similar minimal anterolisthesis of L4 on L5. Alignment is otherwise unremarkable. Lumbar vertebral body heights are maintained. There is moderate narrowing of the L5/S1 disc space height. There are degenerative changes of the posterior elements of the lower lumbar spine. Facet calcifications noted. XR/XR lumbar spine 2-3V IMPRESSION: Mild to moderate degenerative changes of the lower lumbar spine.
== END 2024-03-17 14:59 | disposition home or self-care (01) ==
LOC: HO.XRAY 14:58
PROVIDERS: PCP Internal Medicine; Visit Provider Internal Medicine
DX: M54.50 Low back pain, unspecified (principal)
CPT/HCPCS: 72100

== ENCOUNTER → 2024-05-27 12:57 | Outpatient (REF) | payer BC, SELFPAY ==
--- NOTE | 2024-05-27 12:59 | HM_ITS ---
* Total monitoring time about 6 days. * Underlying rhythm is sinus with an average rate of 74/Min. * Evidence of atrial flutter/fibrillation with rapid rate. Fastest 155/Min. Longest 3 hours. Overall burden about 19%. * Pauses noted during atrial fibrillation but does not reach significance. * Rare supraventricular ectopy. * Rare ventricular ectopy. * No patient markers or diary events. MTDD
== END ==
LOC: HO.CARD 12:57
PROVIDERS: PCP Internal Medicine; Visit Provider Internal Medicine
DX: I48.91 Unspecified atrial fibrillation (principal)
CPT/HCPCS: 93242

== ENCOUNTER → 2024-05-27 12:59 | Outpatient (BNV) | payer BC, SELFPAY | PROVIDERS: PCP Internal Medicine; Visit Provider Internal Medicine | DX: I48.92 Unspecified atrial flutter (principal) | CPT/HCPCS: 93244 ==

== ENCOUNTER 2024-06-17 10:19 | Outpatient (AMB) | payer BC, SELFPAY ==
[2024-06-17 10:22] VITALS: BP 130/70; PULSE 65; BMI 31.3
--- NOTE | 2024-06-17 10:22 | A.OFFVIS_ITS ---
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 In the past, he was seen in consultation regarding abnormal echocardiogram. He was having a lot of tiredness that led to further workup. He was then diagnosed with lymphoma. Pre chemotherapy echocardiogram showed LV dysfunction/wall motion abnormalities. Subsequently, he underwent cardiac catheterization but no significant findings. Then EKG performed during office visit showed atrial fibrillation. He underwent Holter monitor that also confirmed intermittent atrial fibrillation. He has on a small dose of beta-blockers and also on Eliquis. Overall, doing good. No complaints. No palpitations. In fact he states he is doing very well. Also no issues with lymphoma and he states he is clear. [facility] Medical History (Updated 12/17/23 @ 12:03 by Hood Burnett MD) JONATHAN on CPAP Lymphoma Hx of concussion Low back pain Elevated cholesterol Surgical History H/O right knee surgery History of shoulder surgery Hx of colonoscopy Family History Mother No problems noted. Father Stomach cancer Social History Alcohol intake: current Alcohol intake frequency: 3 or more drinks per day Alcohol type: beer Review of Systems Const Denies chills, Denies fatigue, Denies fever(s), Denies frequent falls, Denies weakness, Denies weight gain and Denies weight loss ENT Denies dizziness Card Denies chest pain, Denies leg edema, Denies lightheadedness, Denies palpitations, Denies dyspnea and Denies dyspnea on exertion Resp Denies cough, Denies dyspnea and Denies dyspnea on exertion GI Denies hematochezia Musc Denies abnormal gait, Denies muscle weakness, Denies numbness, Denies radiating pain into limb and Denies tingling Neuro Denies abnormal gait, Denies dizziness, Denies frequent falls, Denies numbness, Denies tingling and Denies weakness Endo Denies fatigue and Denies palpitations Physical Exam Vital Signs: Last Vital Signs Pulse 65 06/17/24 10:22 BP 130/70 06/17/24 10:22 BMI result Body Mass Index 31.3 Const General: comfortable and no acute distress Orientation/consciousness: patient oriented x3 HEENT Other: Unremarkable Head: Yes normal to inspection Neck Neck: Yes normal visual inspection Chest Chest palpation & inspection: normal inspection of the chest Resp Auscultation: clear to auscultation bilaterally Cardio Palpation: normal PMI Heart sounds: S1 normal heart sound present, S2 normal heart sound present, no gallops, no murmurs and no rubs GI Palpation (GI): Soft to palpation Back/Spine/Pelvis Other: unremarkable Skin General skin exam: no rashes or lesions noted Neuro General: patient oriented x3 Extrem General: Yes normal to inspection Psych Mental Status: mental status grossly normal Office Procedures EKG Details: EKG with underlying sinus rhythm at 65/Min; no significant ST-T changes; SC prolongation to 230 milliseconds; [place]. [id number], Complete Assessment & Plan Assessment & Plan (1) Cardiomyopathy: Code(s): I42.9 - Cardiomyopathy, unspecified Category: Medical Qualifiers: Cardiomyopathy type: unspecified Qualified Code(s): I42.9 - Cardio myopathy, unspecified Plan: Initial echocardiogram showed LV dysfunction but follow-up study shows recovery of LVEF. Clinically does not have any symptoms or signs of cardiomyopathy or congestive heart failure. Cardiac catheterization with minimal irregularities in LAD and RCA but otherwise normal coronary arteries. Possible stress-induced related to lymphoma but not clear. Clinically, no heart failure symptoms or signs. (2) Atrial fibrillation: Code(s): I48.91 - Unspecified atrial fibrillation Category: Medical Plan: EKG last visit showed atrial fibrillation. Holter monitor shows intermittent atrial fibrillation rapid rate. Overall burden is 19%. We discussed about this including the strips but he states he never felt anything. He is EKG shows SC prolongation hence we will go up on the beta-blockers gradually. Try metoprolol 25 mg b.i.d.. We can recheck Holter in 3 months on this dose. Based on it, probably higher dose or add diltiazem. Continue anticoagulation. (3) Lymphoma: Code(s): C85.90 - Non-Hodgkin lymphoma, unspecified, unspecified site Category: Medical Plan: Per patient, he is clear. (4) Chemotherapy follow-up examination: Code(s): Z09 - Encounter for follow-up examination after completed treatment for conditions other than malignant neoplasm Category: Medical (5) JONATHAN on CPAP: Code(s): G47.33 - Obstructive sleep apnea (adult) (pediatric) Category: Medical Plan: Continue CPAP. (6) Ascending aorta dilatation: Code(s): I77.810 - Thoracic aortic ectasia Category: Medical Plan: Ascending aortic size 4.2 cm. For his height and weight probably okay. We can recheck in a year or so. Plan x Orders: Orders ECG 3 day holter monitor 3 Months I48.91 - Unspecified atrial fibrillation Medications: New metoprolol tartrate 25 mg PO BID 180 tabs 1RF 90 days Discontinued metoprolol tartrate Discontinued Reason: Doctor's Order 12.5 mg (1/2 x 25 mg) PO BID 90 days 90 tabs 3RF Coding Level of Care Code Est Pt Level 4 (51792) Diagnoses Cardiomyopathy, unspecified type I42.9 Cardiomyopathy type: unspecified Atrial fibrillation I48.91 Lymphoma C85.90 Chemotherapy follow-up examination Z09 JONATHAN on CPAP G47.33 Ascending aorta dilatation I77.810 CPT Codes EKG - CPT: 14354-[id number], Complete ([id number])
== END 2024-06-17 10:56 | disposition home or self-care (01) ==
PROVIDERS: PCP Internal Medicine; Visit Provider Internal Medicine
DX: I42.9 Cardiomyopathy, unspecified (principal); I48.91 Unspecified atrial fibrillation; C85.90 Non-Hodgkin lymphoma, unspecified, unspecified site; Z09 Encounter for follow-up examination after completed treatment for conditions other than malignant neoplasm; G47.33 Obstructive sleep apnea (adult) (pediatric); I77.810 Thoracic aortic ectasia
CPT/HCPCS: 93010; 99214

== ENCOUNTER → 2024-06-17 10:19 | Outpatient (BNVA) | payer BC, SELFPAY | PROVIDERS: PCP Internal Medicine; Visit Provider Internal Medicine | DX: I42.9 Cardiomyopathy, unspecified (principal); I48.91 Unspecified atrial fibrillation; C85.90 Non-Hodgkin lymphoma, unspecified, unspecified site; I77.810 Thoracic aortic ectasia; G47.33 Obstructive sleep apnea (adult) (pediatric); Z79.01 Long term (current) use of anticoagulants; Z79.899 Other long term (current) drug therapy; Z99.89 Dependence on other enabling machines and devices | CPT/HCPCS: 93005 ==

== ENCOUNTER → 2024-09-15 11:29 | Outpatient (REF) | payer BC, SELFPAY | LOC: HO.CARD 11:29 | PROVIDERS: PCP Internal Medicine; Visit Provider Internal Medicine | DX: I48.91 Unspecified atrial fibrillation (principal) | CPT/HCPCS: 93242 ==

== ENCOUNTER → 2024-09-15 11:31 | Outpatient (BNV) | payer BC, SELFPAY | PROVIDERS: PCP Internal Medicine; Visit Provider Internal Medicine | DX: I47.10 Supraventricular tachycardia, unspecified (principal) | CPT/HCPCS: 93244 ==

== ENCOUNTER 2024-09-22 12:26 | Outpatient (AMB) | payer BC, SELFPAY ==
[2024-09-22 12:34] VITALS: BP 112/60; PULSE 69; BMI 32.5
--- NOTE | 2024-09-22 12:34 | MHC.OFFVIS ---
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 In the past, he was seen in consultation regarding abnormal echocardiogram. He was having a lot of tiredness that led to further workup. He was then diagnosed with lymphoma. Pre chemotherapy echocardiogram showed LV dysfunction/wall motion abnormalities. Subsequently, he underwent cardiac catheterization but no significant findings. Then EKG performed during follow up office visit showed atrial fibrillation. He underwent Holter monitor that also confirmed intermittent atrial fibrillation. He has on a small dose of beta-blockers and also on Eliquis. Since last seen, no new complaints. No cardiac issues. He is also in remission from the lymphoma standpoint, according to him. Normal lifestyle otherwise with no limitations. [facility] Medical History (Updated 12/17/23 @ 12:03 by Hood Burnett MD) JONATHAN on CPAP Lymphoma Hx of concussion Low back pain Elevated cholesterol Surgical History H/O right knee surgery History of shoulder surgery Hx of colonoscopy Family History Mother No problems noted. Father Stomach cancer Social History (Updated 09/22/24 @ 12:37 by Daily Almodovar CMA) Alcohol intake: current Alcohol intake frequency: 3 or more drinks per day Alcohol type: beer Patient Tobacco Use Status: Never used Tobacco Review of Systems Const Denies chills, Denies fatigue, Denies fever(s), Denies weight gain and Denies weight loss ENT Denies dizziness Card Denies chest pain, Denies leg edema, Denies lightheadedness, Denies palpitations, Denies dyspnea on exertion, Denies orthopnea and Denies other Resp Denies cough and Denies dyspnea on exertion GI Denies hematochezia and Denies change in stool character Musc Denies abnormal gait, Denies muscle weakness, Denies numbness, Denies radiating pain into limb and Denies tingling Neuro Denies abnormal gait, Denies dizziness, Denies numbness and Denies tingling Endo Denies fatigue and Denies palpitations Physical Exam Vital Signs: Last Vital Signs Pulse 69 09/22/24 12:34 BP 112/60 09/22/24 12:34 BMI result Body Mass Index 32.5 Const General: comfortable and no acute distress Orientation/consciousness: patient oriented x3 HEENT Other: Unremarkable Head: Yes normal to inspection Neck Neck: Yes normal visual inspection Chest Chest palpation & inspection: normal inspection of the chest Resp Auscultation: clear to auscultation bilaterally Cardio Palpation: normal PMI Heart sounds: S1 normal heart sound present, S2 normal heart sound present, no gallops, no murmurs and no rubs GI Palpation (GI): Soft to palpation Back/Spine/Pelvis Other: unremarkable Skin General skin exam: no rashes or lesions noted Neuro General: patient oriented x3 Extrem General: Yes normal to inspection Psych Mental Status: mental status grossly normal Assessment & Plan Assessment & Plan (1) Cardiomyopathy: Code(s): I42.9 - Cardiomyopathy, unspecified Category: Medical Qualifiers: Cardiomyopathy type: unspecified Qualified Code(s): I42.9 - Cardiomyopathy, unspecified Plan: Initial echocardiogram showed LV dysfunction but follow-up study shows recovery of LVEF. Clinically does not have any symptoms or signs of cardiomyopathy or congestive heart failure. Cardiac catheterization with minimal irregularities in LAD and RCA but otherwise normal coronary arteries. Possible stress-induced related to lymphoma. (2) Atrial fibrillation: Code(s): I48.91 - Unspecified atrial fibrillation Category: Medical Plan: In the most recent Holter, underlying rhythm is sinus with an average rate of 69/Min. Prior to that, Holter had shown atrial fibrillation burden of 19%. Continue beta-blockers/anticoagulation. (3) Lymphoma: Code(s): C85.90 - Non-Hodgkin lymphoma, unspecified, unspecified site Category: Medical Plan: Per patient, he is clear. (4) Chemotherapy follow-up examination: Code(s): Z09 - Encounter for follow-up examination after completed treatment for conditions other than malignant neoplasm Category: Medical (5) JONATHAN on CPAP: Code(s): G47.33 - Obstructive sleep apnea (adult) (pediatric) Category: Medical Plan: Continue CPAP. (6) Ascending aorta dilatation: Code(s): I77.810 - Thoracic aortic ectasia Category: Medical Plan: Ascending aortic size 4.2 cm. Acceptable considering his height/weight. Recheck before next visit. Plan x Orders: Orders CA echo transthoracic complete 6 Months I77.810 - Thoracic aortic ectasia Coding Level of Care Code Est Pt Level 4 (49477) Diagnoses Cardiomyopathy, unspecified type I42.9 Cardiomyopathy type: unspecified Atrial fibrillation I48.91 Lymphoma C85.90 Chemotherapy follow-up examination Z09 JONATHAN on CPAP G47.33 Ascending aorta dilatation I77.810
--- OUTSIDE RECORDS SUMMARY | 2024-09-22 17:08 | XMS_ITS | Patient Health Record ---
Author Organization [facility] Address [address] [place] [id number] Care Team Providers Care Physicist Solid State Name Role Phone Mata Dennis MD Primary Care Provider Ben Neff Unavailable [phone] ALLERGIES Allergen (clinical drug ingredient) Drug/Non Drug Allergy documented on EMR Reaction Allergy Type Onset Date Status Sulfur (uncoded) Unknown Allergy Act artem REASON FOR REFERRAL No Information MEDICATIONS Medication SIG (Take, Route, Fr equency, Duration) Notes Start Date End Date Status Multivitamin Active Vitamin B Complex Ac tive Lipitor Active Vitamin C Active Ibuprofen PRN Active Glucosamine Active IMMUNIZATIONS Vaccine Route Administration Date Status Comme nts Influenza Unknown 05/19/2020 Administered SOCIAL HISTORY Tobacco Use: Social History Observation Description Date Details (start date - stop date) Never Smoker NA - NA Sex Assigned At : Social History Observation Description Sex Assigned At Unknown Tobacco Use/Smoking Question Answer Notes Patient is a nonsmoker Alcohol Screen Question Answer Notes Did you have a drink contain ing alcohol in the past year? Yes How often did you have a dri nk containing alcohol in the past year? 2 to 3 times a week (3 points) How many drinks did you have on a typical day when you were drinking in the past year? 3 or 4 drinks (1 point) How often did you have 6 or more drinks on one occasion in the past year? Less than monthly (1 point) Points 5 Interpretation Positive PROBLEMS Problem Type ICD Code Onset Dates Problem Status W/U Status Risk SNOMED Code Notes Problem Encounter for screening for malignant neoplasm of colon (Z12.11) Active confirmed Screening for malignant neoplasm of colon (803799903) Problem Preprocedural examination (Z01.818) Active confirmed Preprocedural examination ([id number] ) PLAN OF TREATMENT Future Test Test Name Order Date COLONOSCOPY 09/15/2020 Insurance Providers Payer Name Payer Address Payer Phone Subscriber Number Group Number Insured Name Patient Relationship to Insured Coverage Start Date Coverage End Date [facility] PROFESSIONAL CLAIMS [address] [place] [address] [id number] OJÃO GARCIA Self - patient is the insured MEDICAL (GENERAL) HISTORY Medical History History ICD Code Hyperlipidemia Denies MT,DM,CVA,Lung disease,renal dise ase Neg colonoscopy in 1998, 2003, and 2009 except for hyperplastic polyps Surgical History Surgery Date(Month/Year) Shoulder surgery - bilateral Right knee surgery
== END 2024-09-22 12:58 | disposition home or self-care (01) ==
PROVIDERS: PCP Internal Medicine; Visit Provider Internal Medicine
DX: I42.9 Cardiomyopathy, unspecified (principal); I48.91 Unspecified atrial fibrillation; C85.90 Non-Hodgkin lymphoma, unspecified, unspecified site; Z09 Encounter for follow-up examination after completed treatment for conditions other than malignant neoplasm; G47.33 Obstructive sleep apnea (adult) (pediatric); I77.810 Thoracic aortic ectasia
CPT/HCPCS: 99214

== ENCOUNTER → 2024-12-02 13:45 | Outpatient (BNVA) | payer BC, SELFPAY | PROVIDERS: PCP Internal Medicine; Visit Provider Internal Medicine ==

== ENCOUNTER 2025-02-02 09:50 | Outpatient (AMB) | payer BC, SELFPAY ==
[2025-02-02 10:00] VITALS: BP 126/80; PULSE 64; TEMP 36.2; O2SAT 96; BMI 31.5
--- NOTE | 2025-02-02 10:00 | A.OFFPC_ITS ---
Vital Signs 02/02/25 10:00 Height 6 ft Weight 232 lb BMI 31.5 BP 126/80 Blood Pressure Location Lt brachial Position Sitting Pulse 64 Pulse Source Pulse Oximeter Temp 97.1 F Temp Source Axillary Pulse Oximetry (%) 96 Oxygen Delivery Method Room Air Intake Visit Reasons: Routine Medical/Surgery Registered Nurse Required: No Accompanied by: Self / Same As Patient Allergies Sulfa (Sulfonamide Antibiotics) Allergy (Mild, Verified 02/02/25 10:40) Rash Medication List - Last Reconciled 02/02/25 by Shawn Khan MD atorvastatin 10 mg PO DAILY B-complex with vitamin C 1 cap PO DAILY cholecalciferol (vitamin D3) 25 mcg PO DAILY Eliquis (apixaban) 5 mg PO BID NS glucosamine HCl 500 mg PO DAILY metoprolol tartrate 25 mg PO BID multivitamin caps PO DAILY Tobacco use date assessed: 02/02/25 Fall risk assessment: No Falls in past year Last assessed Fall Risk: 02/02/25 Dental Screening Dental Screen Date: 02/02/25 Did you have a dental visit in the last 12 months?: Yes Did you have a dental problem in the last 6 months where you did not have access to dental care?: No PFSH Medical History JONATHAN on CPAP Lymphoma Hx of concussion Low back pain Elevated cholesterol Surgical History H/O right knee surgery History of shoulder surgery Hx of colonoscopy (~10/06/20) Family History Mother No problems noted. Father Stomach cancer Social History Housing: House Alcohol intake: current Alcohol intake frequency: 3 or more drinks per day Alcohol type: beer Patient Tobacco Use Status: Never used Tobacco e-Cigarette/Vaping Use: Never Used service: No Current occupational status: retired Cognitive needs: No Hearing needs: No Vision needs: Yes (reading glasses) Questionnaire PHQ-9 Over the last 2 weeks, how often have you been bothered by any of the following problems? 1. Little interest or pleasure in doing things: not at all 2. Feeling down, depressed, or hopeless: not at all 3. Trouble falling or staying asleep, or sleeping too much: not at all 4. Feeling tired or having little energy: not at all 5. Poor appetite or overeating: not at all 6. Feeling bad about yourself - or that you are a failure or have let yourself or your family down: not at all 7. Trouble concentrating on things, such as reading the newspaper or watching television: not at all 8. Moving or speaking so slowly that other people could have noticed. Or the opposite - being so fidgety or restless that you have been moving around a lot more than usual: not at all 9. Thoughts that you would be better off or of hurting yourself in some way: not at all Total score: 0 Source: Developed by Drs. Ben Palomares, Philly Mota, Fernando Rankin and colleagues, with an educational walter from [employer]. Thrive Questionnaire Date Thrive assessed: 02/02/25 I am a: Patient Within the past 12 months, did the food you bought not last and you didn't have the money to get more?: Never true Within the past 12 months, did you worry whether your food would run out before you got money to buy more?: Never true Do you have trouble paying for medicines?: No Do you have trouble getting transportation to medical appointments?: No Do you have trouble paying your heating and electricity bill?: No Do you have trouble taking care of your child, family member or friend?: No Do you have trouble with day-to-day activities such as bathing, preparing meals, shopping, managing finances, etc.?: No Are you currently unemployed and looking for a job?: No Are you interested in more education?: No Currently or been in a relationship where the following occur: No concerns reported THRIVE Score: 0 AUDIT C Alcohol Use Questionnaire (AUDIT-C) 1. How often do you have a drink containing alcohol?: Monthly or less 2. How many drinks containing alcohol do you have on a typical day when you are drinking?: 1 or 2 3. How often do you have six or more drinks on one occasion?: Less than monthly Total Score: 2 NITO-7 AMB Questionnaire NITO-7 Date NITO - 7 assessed: 02/02/25 Feeling nervous, anxious, or on edge: 0 = Not at all Not being able to stop or control worryin = Not at all Worrying too much about different things: 0 = Not at all Trouble relaxin = Not at all Being so restless that it is hard to sit still: 0 = Not at all Becoming easily annoyed or irritable: 0 = Not at all Feeling afraid as if something awful might happen: 0 = Not at all Total NITO-7 score (0-4 normal; 5-9 mild; 10-14 moderate; 15-21 severe): 0 Source: Developed by Drs. Ben Palomares, Philly Mota, Fernando Rankin and colleagues, with an educational walter from [employer]. Physical exam (Primary Care) Vital Signs: Last Vital Signs Temp 97.1 F 02/02/25 10:00 Pulse 64 02/02/25 10:00 BP 126/80 02/02/25 10:00 Pulse Ox 96 02/02/25 10:00 Oxygen Delivery Method Room Air 02/02/25 10:00 BMI result Body Mass Index 31.5 Tobacco/Smoking Status: Tobacco use Status Tobacco use date assessed 02/02/25 02/02/25 10:02 Patient Tobacco Use Status Never used Tobacco 02/02/25 10:02 e-Cigarette/Vaping Use Never Used 02/02/25 10:02 PHQ-9: PHQ-9 Score PHQ-9: Total score 0 02/02/25 10:12 Thrive Assessment: Date of Thrive Assessment Date Thrive assessed 02/02/25 02/02/25 10:02 Currently or been in a relationship where the following occur: No concerns reported Advance Care Planning discussion: Exists, not on file Date of discussion: 02/02/25 Coding Level of Care Code New Pt Level 4 (68538) Complex EM visit Add On G2211 Diagnoses Elevated cholesterol E78.00 Lymphoma C85.90 Atrial fibrillation I48.91 Additional Codes Vital Signs *Quality* - Advance Care Planning discussion: Exists, not on file ([id number]) Assessment & Plan Assessment & Plan (1) Elevated cholesterol: Code(s): E78.00 - Pure hypercholesterolemia, unspecified Category: Medical Plan: BW ordered, will call with results. (2) Lymphoma: Code(s): C85.90 - Non-Hodgkin lymphoma, unspecified, unspecified site Category: Medical Plan: Patient has follow up with Oncologist. (3) Atrial fibrillation: Code(s): I48.91 - Unspecified atrial fibrillation Category: Medical Plan: Condition is stable, continue on anticoagulants and rate control meds. Plan History of Present Illness - The patient is a 69-year-old male presenting for a routine follow-up and [facility] visit. - Reports a history of atrial fibrillation but is unclear on the current status; has seen a professional security officer and is on anticoagulation therapy. - History of lymphoma treated successfully with chemotherapy; PET scans indicate remission. - Has sleep apnea and utilizes a CPAP machine effectively. 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 - Mentions occasional numbness in fingers when sleeping on the shoulder. 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 - Currently retired and able to perform daily activities independently, including driving. - , relies on his for tasks such as grocery shopping. - Reports no urinary issues; maintains good functional capacity. Review of Systems - Neurological: Reports occasional numbness in fingers when sleeping on the shoulder. - Cardiovascular: History of atrial fibrillation. - Respiratory: Denies current shortness of breath; history of sleep apnea. - Genitourinary: Denies urinary incontinence or other urinary issues. - Hematologic/Lymphatic: History of lymphoma, currently in remission. - Musculoskeletal: Denies significant joint pain; reports occasional minor aches related to age. - General: Reports living actively without restrictions. Physical Exam General: Cooperative and healthy appearing Nutritional Appearance: Well nourished Orientation/consciousness: Patient oriented x3 Limitations: No limitations Head: Normal to inspection General: Appearance normal, both eyes and all related structures Neck: Normal visual inspection Chest: Normal palpation of entire chest wall Respiratory: N ormal respiratory effort Neurology: Patient oriented x3, reports numbness in fingers when sleeping on shoulder. Results - Labs pending: PSA, kidney function, liver function, anemia, thyroid, and urine tests. Plan 1. Atrial Fibrillation - Continue anticoagulation therapy. - Monitor through lab work and cardiology follow-up. 2. History Of Lymphoma - Oncology follow-up planned. - Routine PET scans for recurrence surveillance. 3. Sleep Apnea - Continue with CPAP therapy. Discussion Notes During the visit, the patient expressed good health with the exception of some finger numbness when sleeping on his shoulder. We discussed the patient's ongoing management for atrial fibrillation, including anticoagulation therapy, and advised continued follow-up with cardiology. The history of lymphoma and its treatment were reviewed; follow-ups and monitoring with oncology were confirmed. For sleep apnea, the current CPAP therapy continues as it significantly improves symptoms. We outlined the need for upcoming lab tests and the transition to electronic management for these diagnostics. The patient feels confident in the management plan and was agreeable to using the specified laboratory services for tests. We reviewed the clinic?s operating hours and provided guidance on medication refills through the pharmacy. Future visits were planned to continue annual wellness evaluations. Patient Instructions - Continue taking prescribed medications as directed. - Use CPAP machine nightly to manage sleep apnea. - Attend scheduled follow-up with oncology for lymphoma surveillance. - Visit cardiology as needed. - Undergo ordered lab work, fast after midnight before the blood test. - Contact pharmacy for any prescription refills needed. - Call our office if any new symptoms or concerns arise. Orders: Orders Basic Metabolic Panel Today C85.90 - Non-Hodgkin lymphoma, unspecified, unspecified site, E78.00 - Pure hypercholesterolemia, unspecified, I48.91 - Unspecified atrial fibrillation Lipid Panel Today C85.90 - Non-Hodgkin lymphoma, unspecified, unspecified site, E78.00 - Pure hypercholesterolemia, unspecified, I48.91 - Unspecified atrial fibrillation Liver Panel Today C85.90 - Non-Hodgkin lymphoma, unspecified, unspecified site, E78.00 - Pure hypercholesterolemia, unspecified, I48.91 - Unspecified atrial fibrillation Thyroid Stimulating Hormone Today C85.90 - Non-Hodgkin lymphoma, unspecified, unspecified site, E78.00 - Pure hypercholesterolemia, unspecified, I48.91 - Unspecified atrial fibrillation UA and rflx microscopic Today C85.90 - Non-Hodgkin lymphoma, unspecified, unspecified site, E78.00 - Pure hypercholesterolemia, unspecified, I48.91 - Unspecified atrial fibrillation Complete Blood Count no Diff Today C85.90 - Non-Hodgkin lymphoma, unspecified, unspecified site, E78.00 - Pure hypercholesterolemia, unspecified, I48.91 - Unspecified atrial fibrillation Prostate Specific Antigen Scr Today C85.90 - Non-Hodgkin lymphoma, unspecified, unspecified site, E78.00 - Pure hypercholesterolemia, unspecified, I48.91 - Unspecified atrial fibrillation
--- OUTSIDE RECORDS SUMMARY | 2025-02-02 10:37 | XMS_ITS | Patient Health Record ---
Author Organization [facility] Address [address] [place] [phone] Care Team Providers Care Weed Inspector Name Role Phone Mata Dennis MD Primary Care Provider Ben Neff Unavailable [phone] Allergies Allergen (clinical drug ingredient) Drug/Non Drug Allergy documented on EMR Reaction Allergy Type Onset Date Status Sulfur (uncoded) Unknown Allergy Act artem Reason For Referral No Information Medications Medication SIG (Take, Route, Fr equency, Duration) Notes Start Date End Date Status Multivitamin Active Vitamin B Complex Ac tive Lipitor Active Vitamin C Active Ibuprofen PRN Active Glucosamine Active Immunizations Vaccine Route Administration Date Status Comme nts Influenza Unknown 05/19/2020 Administered Social History Tobacco Use: Social History Observation Description Date Details (start date - stop date) Never Smoker NA - NA Tobacco Use/Smoking Question Answer Notes Patient is [...] monthly (1 point) Points 5 Interpretation Positive Section Notes: Nonsmoker; few beers every d ay Problems Problem Type SNOMED Code ICD Code Onset Dates Problem Status W/U Status Risk Notes Problem Encounter for screening for malignant neoplasm of colon (Z12.11) Active confirmed Problem Preprocedural examination (072207812532578) Preprocedural examination (Z01.818) Active confirmed Plan Of Treatment Future Test Test Name Order Date COLONOSCOPY 09/15/2020 Insurance Providers Payer Name Payer Address Payer Phone Subscriber Number Group Number Insured Name Patient Relationship to Insured Coverage Start Date Coverage End Date [facility] PROFESSIONAL CLAIMS [address] [place] [address] [id number] JOÃO GARCIA Self - patient is the insured Medical (General) History Medical History History ICD Code Hyperlipidemia Denies NE,DM,CVA,Lung disease,renal dise ase Neg colonoscopy in 1998, 2003, and 2009 except for hyperplastic polyps Surgical History Surgery Date(Month/Year) Shoulder surgery - bilateral Right knee surgery
== END 2025-02-02 11:12 | disposition home or self-care (01) ==
LOC: HO.HMCHD 09:51
PROVIDERS: PCP Internal Medicine; Visit Provider Internal Medicine
DX: E78.00 Pure hypercholesterolemia, unspecified (principal); C85.90 Non-Hodgkin lymphoma, unspecified, unspecified site; I48.91 Unspecified atrial fibrillation; Z00.00 Encounter for general adult medical examination without abnormal findings

== ENCOUNTER → 2025-02-02 09:50 | Outpatient (BNVA) | payer BC, SELFPAY | PROVIDERS: PCP Internal Medicine; Visit Provider Internal Medicine ==

== ENCOUNTER 2025-02-05 08:15 | Outpatient (REF) | payer BC, SELFPAY ==
--- OUTSIDE RECORDS SUMMARY | 2025-02-05 08:18 | XMS_ITS | Patient Health Record ---
Author Organization [facility] Address [address] [place] [address] Care Team Providers Care Breeder Service Technician Name Role Phone Mata Dennis MD Primary Care Provider Ben Neff Unavailable [phone] Allergies Allergen (clinical drug ingredient) Drug/Non Drug [...] Problem Status W/U Status Risk Notes Problem Screening for malignant neoplasm of colon (430025125) Encounter for screening for malignant neoplasm of colon (Z12.11) Active confirmed Problem Preprocedural examination ([id number]) Preprocedural examination (Z01.818) Active confirmed Plan Of Treatment Future Test Test Name Order Date COLONOSCOPY 09/15/2020 Insurance Providers Payer Name Payer Address Payer Phone Subscriber Number Group Number Insured Name Patient Relationship to Insured Coverage Start Date Coverage End Date [facility] PROFESSIONAL CLAIMS [address] [place] [address] [id number] JOÃO GARCIA Self - patient is the insured Medical (General) History Medical History History ICD Code Hyperlipidemia Denies IA,DM,CVA,Lung disease,renal dise ase Neg colonoscopy in 1998, 2003, and 2009 except for hyperplastic polyps Surgical History Surgery Date(Month/Year) Shoulder surgery - bilateral Right knee surgery
[2025-02-05 10:14] LABS: Hematocrit 40.9 % (42.0-52.0); Hemoglobin 13.9 g/dl (14.0-18.0); Mean Corpuscular Hemoglobin 32.6 pg (27.0-33.0); Mean Corpuscular Volume 95.8 fL (80.0-98.0); Mean Platelet Volume 11.4 fL (9.4-12.4); Platelet Count 205 X10*3/uL (160-400); Red Blood Count 4.27 X10*6/uL (4.60-5.80); Red Cell Distribution Width 13.4 % (11.0-16.0); White Blood Count 5.8 X10*3/uL (4.8-10.8)
[2025-02-05 10:21] LABS: Appearance Urine Clear; Color Urine Yellow; Glucose Urine UA Negative (Negative); Leukocyte Esterase Urine Negative (Negative); Nitrite Urine Negative (Negative); PH 5.5 (5.0-9.0); Urine Blood Negative (Negative); Urine Ketones Negative (Negative); Urine Protein Negative (Neg-Trace)
[2025-02-05 10:31] LABS: Anion Gap 11 (12-20)
[2025-02-05 10:35] LABS: Alanine Aminotransferase 28 U/L (0-40); Albumin Level 4.4 g/dL (3.5-5.0); Alkaline Phosphatase 74 U/L (39-117); Aspartate Amino Transferase 26 U/L (5-37); Bilirubin Direct 0.2 mg/dL (0.0-0.5); Bilirubin Total 0.5 mg/dL (0.0-1.0); Blood Urea Nitrogen 17 mg/dL (9-16); Calcium 9.4 mg/dL (8.4-10.2); Carbon Dioxide 23 mmol/L (22-29); Chloride 111 mmol/L (96-108); Cholesterol 195 mg/dL (<200); Estimated Glomerular Filt Rate > 60; Glucose Random 105 mg/dL (60-115); HDL Cholesterol 55 mg/dL (>40); LDL Cholesterol Calculated 118 mg/dL (<100); Potassium 3.9 mmol/L (3.3-5.1); Sodium 141 mmol/L (135-145); Triglycerides 110 mg/dL (<150)
[2025-02-05 10:43] LABS: Thyroid Stimulating Hormone 1.62 uIU/mL (0.32-4.0)
[2025-02-05 11:02] LABS: Prostate Specific Antigen Scr 0.42 ng/mL (<0.05-4.0)
== END 2025-02-05 08:16 | disposition home or self-care (01) ==
LOC: HO.HMGCLDS 08:15
PROVIDERS: PCP Internal Medicine; Visit Provider Internal Medicine
DX: C85.90 Non-Hodgkin lymphoma, unspecified, unspecified site (principal); I48.91 Unspecified atrial fibrillation; E78.00 Pure hypercholesterolemia, unspecified; Z12.5 Encounter for screening for malignant neoplasm of prostate
CPT/HCPCS: 36415; 80048; 80061; 80076; 81003; 84153; 84443; 85027

== ENCOUNTER → 2025-03-31 14:57 | Outpatient (REF) | payer BC, SELFPAY ==
--- NOTE | 2025-03-31 15:00 | CA_ITS ---
Transthoracic Echocardiogram Patient (Last, First, Middle): Anuj Hu P Gender: Male Date of : 1955 Age: 69 Procedure Date: 03/31/2025 Procedure Type: Transthoracic Echocardiogram Location: OP Height: 182.88 cm Weight: 105.24 kg BSA: 2.27 m2 Heart Rate: bpm BP: 126 / 80 mmHg Certified Caregiver: KATY Referring MD: Hood Burnett MD Symptoms: I77.810 - Thoracic aortic ectasia Study Quality: Adequate ECG Rhythm: Sinus Conclusions: - The left ventricular systolic function is normal. The calculated ejection fraction is 58% by biplane method. - No obvious valvular pathology seen on this study. - There is mild dilatation of the ascending aorta measuring 4.10 cm. Findings Left Ventricle Normal left ventricular cavity size. The left ventricular systolic function is normal. The calculated ejection fraction is 58% by biplane method. There is no evidence of regional wall motion abnormalities. Diastolic function is normal for age. There is mild septal asymmetric hypertrophy. Right Ventricle Normal right ventricular cavity size and systolic function. Atria Both atria are normal in size. Aortic Valve There is mild calcification of the aortic valve. There is no aortic valve stenosis. There is no aortic valve regurgitation. Mitral Valve The mitral valve appears normal. There is no mitral valve regurgitation. There is no mitral valve stenosis. Pulmonic Valve The pulmonic valve is likely normal. Tricuspid Valve There is no tricuspid valve regurgitation. Tricuspid regurgitation envelope is inadequate for calculation of right ventricular systolic pressure. Great Vessels The aortic arch is normal in size. There is mild dilatation of the ascending aorta measuring 4.10 cm. Venous The inferior vena cava is normal in size and collapses greater than 50% with inspiration. Pericardium/Pleural There is no evidence of pericardial effusion. Prior Study Comparison No significant change compared to prior study dated: 11/29/2023. Recommendations, Care & Conclusions No obvious valvular pathology seen on this study. Measurements 2D Linear Measurements IVSd: 1.20 0.6-0.9/0.6-1.0 cm LVIDd: 5.69 3.9-5.3/4.2-5.9 cm LVIDd Index: 2.51 2.4-3.2/2.2-3.1 cm/m2 LVIDs: 3.84 2.0-3.6 cm LVPWd: 0.87 0.7-1.1 cm LA Diam: 3.50 2.7-3.8/3.0-4.0 cm LAIDs Index: 1.54 1.5-2.3 cm/m2 LV Mass: 294.58 67-162/88-224 g LV Mass Index: 129.77 43-95/49-115 g/m2 LVOT Diam: 2.20 3.0+(-)1.3 cm 2D Systolic Function EF 4C: 60.50 >55% EF 2C: 52.60 >55% EF BiP: 57.80 >55% Mitral Valve MV Pk E: 0.56 MV PK A: 0.68 MV Decel Time: 282.00 E/A: 0.80 E'Lateral: 8.70 E'Medial: 5.11 E/E' Med: 10.90 E/E' Lat: 6.40 PHT: 83.00 MVA PHT: 2.65 Decel Ashley: 1.98 Aortic Valve AoV Pk Scooby: 1.53 AoV Mn Scooby: 1.02 AoV VTI: 0.33 AoV Pk Grad: 9.00 Aov Mn Grad: 5.00 CADE Cont.VTI: 2.44 LVOT LVOT Pk Scooby: 0.97 LVOT Mn Scooby: 0.64 LVOT VTI: 0.21 LVOT Pk Grad: 4.00 LVOT Mn Grad: 2.00 LVOT Diam: 2.20 LVOT Area: 3.80 Diastolic Function MV Pk E: 0.56 MV Pk A: 0.68 E/A: 0.80 E'Medial: 5.11 E/E' Med: 10.90 E' Laterial: 8.70 E/E' Lat: 6.40 Right Ventricle TAPSE (mm): 31.30 TVS' Scooby: 10.10 Tricuspid Valve RA Press: 3.00 Great Vessels Aorta Sinus of Valsalva: 3.87 2.0-3.[address] Ridge: 3.10 1.7-3.4 cm Ao Asc: 4.10 2.1-3.4 cm Ao Arch: 3.70 Updated in Other Vendor System with Status of Final Hood Burnett MD electronically signed on 04/02/2025 3:46:40 PM with status of Final
--- OUTSIDE RECORDS SUMMARY | 2025-03-31 15:27 | XMS_ITS | Patient Health Record ---
Author Organization [facility] Address [address] [place] [address] Care Team Providers Care Manager Product Marketing Name Role Phone Jeannie (RETIRED) Mata LLAMAS Primary Care Provide r Ben Goodman Unavailable [phone] Allergies Allergen (clinical drug ingredient) Drug/Non Drug [...] Problem Screening for malignant neoplasm of colon ([id number]) Encounter for screening for malignant neoplasm of colon (Z12.11) Active confirmed Problem Preprocedural examination ([id number]) Preprocedural examination (Z01.818) Active confirmed Plan Of Treatment Future Test Test Name Order Date COLONOSCOPY 09/15/2020 Insurance Providers Payer Name Payer Address Payer Phone Subscriber Number Group Number Insured Name Patient Relationship to Insured Coverage Start Date Coverage End Date [facility] PROFESSIONAL CLAIMS [address] [place] [address] [id number] JOÃO GARCIA Self - patient is the insured Medical (General) History Medical History History ICD Code Hyperlipidemia Denies [place],DM,CVA,Lung disease,renal dise ase Neg colonoscopy in 1998, 2003, and 2009 except for hyperplastic polyps Surgical History Surgery Date(Month/Year) Shoulder surgery - bilateral Right knee surgery
--- OUTSIDE RECORDS SUMMARY | 2025-03-31 15:27 | XMS_ITS | Encounter Summary ---
Author Organization [facility] Address [address] [place] [address] Phone Care Team Providers Care Bus Attendant Name Role Phone Mata Dennis MD Primary Care Provider Encounter Details Date Type Department Care Team (Latest Contact Info) Description 01/17/2019 Transcribe Orders [facility] [address] [place] [address] Lashae Pichardo MD [address] [facility] [address] [place] [address] Fibrohistiocytic proliferation of the skin (Primary Dx) Social History Tobacco Use Types Packs/Day Years Used Date Smoking Tobacco: Never Assessed Sex and Gender Information Value Date Recorded Sex Assigned at Not on file Legal Sex Male 3:05 PM EDT Gender Identity Not on file Sexual Orientation Not on file documented as of this encounter Plan of Treatment Not on file documented as of this encounter Results * Immunoglobulin E, total (01/17/2019 3:24 PM EDT) IGE 110 <=214 kU/L [facility] Blood 01/17/2019 3:24 PM EDT 01/17/2019 3:28 PM EDT us Lashae Pichardo MD LAB BLOOD ORDERABLE S Final Result [facility] [address] [place] [address] * (ABNORMAL) CBC and differential (01/17/2019 3:24 PM EDT) WBC 6.89 3.40 - 11.20 K/uL [facility] RBC 4.36(L) 4.50 - 5.50 M/uL [facility] HGB 14.0 13.0 - 17.0 g/dL [facility] HCT 41.5 40.0 - 51.0 % [facility] PLT 200 130 - 400 K/uL [facility] MCV 95.2 79.0 - 98.0 fL [facility] MCH 32.1 27.0 - 34.8 pg [facility] MCHC 33.7 31.5 - 36.0 g/dL [facility] RDW 13.0 10.8 - 14.6 % [facility] MPV 11.1 9.4 - 12.4 fl [facility] NRBC 0.00 0.00 /100 WBCs [facility] ABSOLUTE NRBC 0.00 0.00 K/uL [facility] DIFF METHOD Auto [facility] NEUTS 49.4 45.30 - 77.70 % [facility] LYMPHS 38.8 12.30 - 39.70 % [facility] MONOS 8.9 4.10 - 12.80 % [facility] EOS 1.6 0 - 7.2 % [facility] BASOS 1.0 0 - 2.80 % [facility] Granulocytes, immature (%) 0.3 0.0 - 0.9 % [facility] ABSOLUTE NEUTS 3.41 1.40 - 7.70 K/uL [facility] ABSOLUTE LYMPHS 2.67 0.60 - 3.20 K/uL [facility] ABSOLUTE MONOS 0.61(H) 0.11 - 0.59 K/uL [facility] ABSOLUTE EOS 0.11 0.01 - 0.50 K/uL [facility] ABSOLUTE BASOS 0.07 0.00 - 0.08 K/uL [facility] Granulocytes, immature 0.02 0.00 - 0.05 K/uL [facility] Blood 01/17/2019 3:24 PM EDT 01/17/2019 3:28 PM EDT us Lashae Pichardo MD LAB BLOOD ORDERABLE S Final Result [facility] [address] [place] [address] documented in this encounter Visit Diagnoses Diagnosis Fibrohistiocytic proliferation of the skin- Primary Other specified disorder of skin documented in this encounter Care Teams Bus Attendant Relationship Specialty Start Date End Date Mata Dennis MD [address] [place] [address] [place] [address] PCP - General Internal Medicine 01/17/19 documented as of this encounter Additional Source Comments The information contained in this document represents components of the legal health record. It is not the complete legal health record.[facility]
== END ==
LOC: HO.CARD 14:57
PROVIDERS: PCP Internal Medicine; Visit Provider Internal Medicine
DX: I77.810 Thoracic aortic ectasia (principal)
CPT/HCPCS: 93306

== ENCOUNTER → 2025-03-31 15:00 | Outpatient (BNV) | payer BC, SELFPAY | PROVIDERS: PCP Internal Medicine; Visit Provider Internal Medicine | DX: I42.2 Other hypertrophic cardiomyopathy (principal); I77.810 Thoracic aortic ectasia | CPT/HCPCS: 93306 ==

== ENCOUNTER 2025-04-20 14:55 | Outpatient (AMB) | payer BC, SELFPAY ==
--- NOTE | 2025-04-20 15:02 | A.OFFVIS_ITS ---
Vital Signs 04/20/25 15:03 Height 6 ft Weight 227 lb 1.218 oz BMI 30.8 BP 132/62 Blood Pressure Location Lt brachial Position Sitting Pulse 62 Pulse Source Pulse Oximeter Intake Visit Reasons: 6m follow up /echo Allergies Sulfa (Sulfonamide Antibiotics) Allergy (Mild, Verified 02/02/25 10:40) Rash Medication List - Last Reconciled 04/20/25 by Hood Burnett MD atorvastatin 20 mg PO BEDTIME Eliquis (apixaban) 5 mg PO BID NS glucosamine HCl 500 mg PO DAILY metoprolol tartrate 25 mg PO BID multivitamin caps PO DAILY HPI Comments Details: Anuj returns for follow-up. In the past, he was seen in consultation regarding abnormal echocardiogram. He was having a lot of tiredness that led to further workup. He was then diagnosed with lymphoma. Pre chemotherapy echocardiogram showed LV dysfunction/wall motion abnormalities. Subsequently, he underwent cardiac catheterization but no significant findings. Then EKG performed during follow up office visit showed atrial fibrillation. He underwe nt Holter monitor that also confirmed intermittent atrial fibrillation. He has on a small dose of beta-blockers and also on Eliquis. Overall, he states he is doing good. No cardiac symptoms. He is also doing well from the lymphoma standpoint as he in remission. [facility] Medical History JONATHAN on CPAP Lymphoma Hx of concussion Low back pain Elevated cholesterol Surgical History H/O right knee surgery History of shoulder surgery Hx of colonoscopy (~10/06/20) Family History Mother No problems noted. Father Stomach cancer Social History Housing: House Alcohol intake: current Alcohol intake frequency: 3 or more drinks per day Alcohol type: beer Patient Tobacco Use Status: Never used Tobacco e-Cigarette/Vaping Use: Never Used service: No Current occupational status: retired Cognitive needs: No Hearing needs: No Vision needs: Yes (reading glasses) Review of Systems Const Denies weakness ENT Denies dizziness Card Denies chest pain, Denies chest pain with activity, Denies syncope, Denies rapid heart rate, Denies pedal edema, Denies edema, Denies leg edema, Denies lightheadedness, Denies palpitations, Denies dyspnea, Denies dyspnea on exertion and Denies orthopnea Resp Denies cough, Denies dyspnea and Denies dyspnea on exertion GI Denies hematochezia and Denies change in stool character Musc Denies abnormal gait, Denies muscle cramps, Denies muscle weakness, Denies numbness, Denies radiating pain into limb and Denies tingling Neuro Denies abnormal gait, Denies dizziness, Denies syncope, Denies numbness, Denies tingling and Denies weakness Endo Denies palpitations Physical Exam Vital Signs: Last Vital Signs Pulse 62 04/20/25 15:03 BP 132/62 04/20/25 15:03 BMI result Body Mass Index 30.8 Const General: comfortable and no acute distress Orientation/consciousness: patient oriented x3 HEENT Other: Unremarkable Head: Yes normal to inspection Neck Neck: Yes normal visual inspection Chest Chest palpation & inspection: normal inspection of the chest Resp Auscultation: clear to auscultation bilaterally Cardio Palpation: normal PMI Heart sounds: S1 normal heart sound present, S2 normal heart sound present, no gallops, no murmurs and no rubs GI Palpation (GI): Soft to palpation Back/Spine/Pelvis Other: unremarkable Skin General skin exam: no rashes or lesions noted Neuro General: patient oriented x3 Extrem General: Yes normal to inspection Psych Mental Status: mental status grossly normal Assessment & Plan Assessment & Plan (1) Cardiomyopathy: Code(s): I42.9 - Cardiomyopathy, unspecified Category: Medical Qualifiers: Cardiomyopathy type: unspecified Qualified Code(s): I42.9 - Cardiomyopathy, unspecified Plan: Initial echocardiogram showed LV dysfunction but follow-up study shows recovery of LVEF. Cardiac catheterization with minimal irregularities in LAD and RCA but otherwise normal coronary arteries. Possible stress-induced related to lymphoma. (2) Atrial fibrillation: Code(s): I48.91 - Unspecified atrial fibrillation Category: Medical Plan: In the most recent Holter, underlying rhythm is sinus with an average rate of 69/Min. Prior to that, Holter had shown atrial fibrillation burden of 19%. Continue beta-blockers/anticoagulation. (3) Lymphoma: Code(s): C85.90 - Non-Hodgkin lymphoma, unspecified, unspecified site Category: Medical Plan: Per patient, he is clear. (4) Chemotherapy follow-up examination: Code(s): Z09 - Encounter for follow-up examination after completed treatment for conditions other than malignant neoplasm Category: Medical (5) JONATHAN on CPAP: Code(s): G47.33 - Obstructive sleep apnea (adult) (pediatric) Category: Medical Plan: Continue CPAP. (6) Ascending aorta dilatation: Code(s): I77.810 - Thoracic aortic ectasia Category: Medical Plan: Stable. In the current study, ascending aortic size 4.1 cm. Plan Discussion Notes During the visit, we discussed the patient's stable heart function. He reported no adverse effects from his medication, and we agreed to continue monitoring his condition. We also reviewed his cancer history, confirming he remains cancer- free with regular oncologist follow-ups. Patient was informed and verbally consented to the use of an ambient scribe for clinic note documentation during this visit. Orders: Orders CA echo transthoracic complete 1 Year I42.9 - Cardiomyopathy, unspecified, I77.810 - Thoracic aortic ectasia Patient Instructions: - Continue current medication regimen as prescribed. - Follow up with oncologist as scheduled. - Report any new symptoms or concerns to the healthcare provider. Coding Level of Care Code Est Pt Level 4 (86929) Complex EM visit Add On G2211 Diagnoses Cardiomyopathy, unspecified type I42.9 Cardiomyopathy type: unspecified Atrial fibrillation I48.91 Lymphoma C85.90 Chemotherapy follow-up examination Z09 JONATHAN on CPAP G47.33 Ascending aorta dilatation I77.810
[2025-04-20 15:03] VITALS: BP 132/62; PULSE 62; BMI 30.8
--- OUTSIDE RECORDS SUMMARY | 2025-04-20 16:37 | XMS_ITS | Clinical Summary ---
Author Organization [facility] Address [address] [place], [place] [address] Phone Care Team Providers Care Solvent Process Extractor Operator Name Role Phone Mata Dennis MD Primary Care Provider Social History Tobacco Use Types Packs/Day Years Used Date Smoking Tobacco: Never Assessed Education Answer Date Recorded Are you interested in more education? Not on serena e 12/22/2022 Are you concerned about learning? Not on file 12/22/2022 No 12/22/2022 No 12/22/2022 Digital Access Answer Date Recorded No 01/23/2023 No 01/23/2023 No 01/23/2023 Reliable internet access at home? Not on file 01/23/2023 Device with a working camera? Not on file Sex and Gender Information Value Date Recorded Sex Assigned at Not on file Legal Sex Male 3:05 PM EDT Gender Identity Not on file Sexual Orientation Not on file Plan of Treatment Not on file Medical Devices Not on file Insurance [facility] POS O POS [place] [address] [place], [place] [id number] [address] [place] [address] [address] [place] [address] [place] [address] HMO POS [facility] H[facility] Care Teams Solvent Process Extractor Operator Relationship Specialty Start Date End Date Mata Dennis MD [address] [place] [address] [place] [address] PCP - General Internal Medicine 01/17/19 Additional Source Comments The information contained in this document represents components of the legal health record. It is not the complete legal health record.[facility]
--- OUTSIDE RECORDS SUMMARY | 2025-04-20 16:37 | XMS_ITS | Encounter Summary ---
Author Organization [facility] Address [address] [place] [address] Phone Care Team Providers Care Cdl Company Driver Name Role Phone Mata Dennis MD Primary Care Provider Encounter Details Date Type Department Care Team (Latest Contact Info) Description 01/17/2019 Transcribe Orders [facility] [address] [place] [address] Lashae Pichardo MD [address] [facility] [address] [place] [address] Fibrohistiocytic proliferation of the skin (Primary Dx) [...] 3:24 PM EDT) IGE 110 <=214 kU/L [facility] Blood 01/17/2019 3:24 PM EDT 01/17/2019 3:28 PM EDT us Lashae Pichardo MD LAB BLOOD ORDERABLE S Final Result [facility] [address] [place] [address] * (ABNORMAL) CBC and differential (01/17/2019 3:24 PM EDT) WBC 6.89 3.40 - 11.20 K/uL [facility] RBC 4.36(L) 4.50 - 5.50 M/uL [facility] HGB 14.0 13.0 - 17.0 g/dL [facility] HCT 41.5 40.0 - 51.0 % [facility] PLT 200 130 - 400 K/uL [facility] MCV 95.2 79.0 - 98.0 fL [facility] MCH 32.1 27.0 - 34.8 pg [facility] MCHC 33.7 31.5 - 36.0 g/dL [facility] RDW 13.0 10.8 - 14.6 % [facility] MPV 11.1 9.4 - 12.4 fl [facility] NRBC 0.00 0.00 /100 WBCs [facility] ABSOLUTE NRBC 0.00 0.00 K/uL [facility] DIFF METHOD Auto [facility] NEUTS 49.4 45.30 - 77.70 % [facility] LYMPHS 38.8 12.30 - 39.70 % [facility] MONOS 8.9 4.10 - 12.80 % [facility] EOS 1.6 0 - 7.2 % [facility] BASOS 1.0 0 - 2.80 % [facility] Granulocytes, immature (%) 0.3 0.0 - 0.9 % [facility] ABSOLUTE NEUTS 3.41 1.40 - 7.70 K/uL [facility] ABSOLUTE LYMPHS 2.67 0.60 - 3.20 K/uL [facility] ABSOLUTE MONOS 0.61(H) 0.11 - 0.59 K/uL [facility] ABSOLUTE EOS 0.11 0.01 - 0.50 K/uL [facility] ABSOLUTE BASOS 0.07 0.00 - 0.08 K/uL [facility] Granulocytes, immature 0.02 0.00 - 0.05 K/uL [facility] Blood 01/17/2019 3:24 PM EDT 01/17/2019 3:28 PM EDT us Lashae Pichardo MD LAB BLOOD ORDERABLE S Final Result [facility] [address] [place] [address] documented in this encounter Visit Diagnoses Diagnosis Fibrohistiocytic proliferation of the skin- Primary Other specified disorder of skin documented in this encounter Care Teams Cdl Company Driver Relationship Specialty Start Date End Date Mata Dennis MD [address] [place] [address] [place] [address] PCP - General Internal Medicine 01/17/19 documented as of this encounter Additional Source Comments The information contained in this document represents components of the legal health record. It is not the complete legal health record.[facility]
--- OUTSIDE RECORDS SUMMARY | 2025-04-20 16:37 | XMS_ITS | Patient Health Record ---
Author Organization [facility] Address [address] [place] [address] Care Team Providers Care Manager Filter Name Role Phone Jeannie (RETIRED) Mata LLAMAS Primary Care Provide r Ben Goodman Unavailable [phone] Allergies Allergen (clinical drug ingredient) Drug/Non Drug [...] colon (Z12.11) Active confirmed Problem Preprocedural examination ([id number]) Preprocedural examination (Z01.818) Active confirmed Plan Of Treatment Future Test Test Name Order Date COLONOSCOPY 09/15/2020 Insurance Providers Payer Name Payer Address Payer Phone Subscriber Number Group Number Insured Name Patient Relationship to Insured Coverage Start Date Coverage End Date [facility] PROFESSIONAL CLAIMS [address] [place] [address] [id number] JOÃO GARCIA Self - patient is the insured Medical (General) History Medical History History ICD Code Hyperlipidemia Denies [place],DM,CVA,Lung disease,renal dise ase Neg colonoscopy in 1998, 2003, and 2009 except for hyperplastic polyps Surgical History Surgery Date(Month/Year) Shoulder surgery - bilateral Right knee surgery
== END 2025-04-20 15:18 | disposition home or self-care (01) ==
LOC: HO.HCS 14:55
PROVIDERS: PCP Internal Medicine; Visit Provider Internal Medicine
DX: I42.9 Cardiomyopathy, unspecified (principal); I48.91 Unspecified atrial fibrillation; C85.90 Non-Hodgkin lymphoma, unspecified, unspecified site; Z09 Encounter for follow-up examination after completed treatment for conditions other than malignant neoplasm; G47.33 Obstructive sleep apnea (adult) (pediatric); I77.810 Thoracic aortic ectasia
CPT/HCPCS: 99214

== ENCOUNTER 2025-07-27 14:42 | Outpatient (AMB) | payer BC, SELFPAY ==
--- NOTE | 2025-07-27 14:44 | MHC.PC.OV ---
Vital Signs 07/27/25 14:45 Height 6 ft Weight 229 lb BMI 31.1 BP 123/70 Blood Pressure Location Rt brachial Position Sitting Respiration 14 Pulse 88 Pulse Source Pulse Oximeter Temp 97.4 F Temp Source Temporal Artery Scan Pulse Oximetry (%) 98 Oxygen Delivery Method Room Air Intake Visit Reasons: Follow up Podiatric Medicine Doctor Required: No Accompanied by: Self / Same As Patient Allergies Sulfa (Sulfonamide Antibiotics) Allergy (Mild, Verified 07/27/25 14:46) Rash Tobacco use date assessed: 02/02/25 Dental Screening Dental Screen Date: 02/02/25 HPI HPI Comments History of Present Illness Details History of Present Illness - The patient is a 69 year old individual presenting for evaluation of fatigue and right hip pain. - The patient reports feeling constantly run down and tired, particularly with activities such as going up and down stairs. - The patient has long-standing right hip pain, which is localized and does not radiate down the leg. - The pain is present even with simple movements like putting on a sock in the morning. - Past medical history is significant for atrial fibrillation and lymphoma, which was treated with chemotherapy. - The patient also has a history of prior surgeries on both shoulders. - Current medications include a statin, apixaban, metoprolol, and levocetirizine for allergies, which was started 4-5 years ago for pruritus. - Blood work from January was normal, with a normal hemoglobin, indicating the patient was not anemic at that time. - The patient reports regular bowel habits and believes colonoscopy is up to date. 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 - The patient's reported activities include reading and riding a motorcycle in good weather. - The patient denies being bored since [facility] and feels there is never enough time in the day. Results - Labs: Blood work from January was reviewed and noted to be normal, including a normal hemoglobin. [facility] Medical History JONATHAN on CPAP Lymphoma Hx of concussion Low back pain Elevated cholesterol Surgical History H/O right knee surgery History of shoulder surgery Hx of colonoscopy (~10/06/20) Family History Mother No problems noted. Father Stomach cancer Social History Housing: House Alcohol intake: current Alcohol intake frequency: 3 or more drinks per day Alcohol type: beer Patient Tobacco Use Status: Never used Tobacco e-Cigarette/Vaping Use: Never Used service: No Current occupational status: retired Cognitive needs: No Hearing needs: No Vision needs: Yes (reading glasses) Questionnaire PHQ-9 Over the last 2 weeks, how often have you been bothered by any of the following problems? 1. Little interest or pleasure in doing things: not at all 2. Feeling down, depressed, or hopeless: not at all 3. Trouble falling or staying asleep, or sleeping too much: not at all 4. Feeling tired or having little energy: not at all 5. Poor appetite or overeating: not at all 6. Feeling bad about yourself - or that you are a failure or have let yourself or your family down: not at all 7. Trouble concentrating on things, such as reading the newspaper or watching television: not at all 8. Moving or speaking so slowly that other people could have noticed. Or the opposite - being so fidgety or restless that you have been moving around a lot more than usual: not at all 9. Thoughts that you would be better off or of hurting yourself in some way: not at all Total score: 0 Source: Developed by Drs. Ben Palomares, Philly Mota, Fernando Rankin and colleagues, with an educational walter from [employer]. Thrive Questionnaire Date Thrive assessed: 02/02/25 I am a: Patient Within the past 12 months, did the food you bought not last and you didn't have the money to get more?: Never true Within the past 12 months, did you worry whether your food would run out before you got money to buy more?: Never true Do you have trouble paying for medicines?: No Do you have trouble getting transportation to medical appointments?: No Do you have trouble paying your heating and electricity bill?: No Do you have trouble taking care of your child, family member or friend?: No Do you have trouble with day-to-day activities such as bathing, preparing meals, shopping, managing finances, etc.?: No Are you currently unemployed and looking for a job?: No Are you interested in more education?: No Currently or been in a relationship where the following occur: No concerns reported THRIVE Score: 0 AUDIT C Alcohol Use Questionnaire (AUDIT-C) 1. How often do you have a drink containing alcohol?: Monthly or less 2. How many drinks containing alcohol do you have on a typical day when you are drinking?: 1 or 2 3. How often do you have six or more drinks on one occasion?: Less than monthly Total Score: 2 NITO-7 AMB Questionnaire NITO-7 Date NITO - 7 assessed: 02/02/25 Feeling nervous, anxious, or on edge: 0 = Not at all Not being able to stop or control worryin = Not at all Worrying too much about different things: 0 = Not at all Trouble relaxin = Not at all Being so restless that it is hard to sit still: 0 = Not at all Becoming easily annoyed or irritable: 0 = Not at all Feeling afraid as if something awful might happen: 0 = Not at all Total NITO-7 score (0-4 normal; 5-9 mild; 10-14 moderate; 15-21 severe): 0 Source: Developed by Drs. Ben Palomares, Philly Mota, Fernando Rankin and colleagues, with an educational walter from [employer]. Review of Systems Narrative Review of Systems - Constitutional: Reports feeling constantly run down and tired. - Musculoskeletal: Reports long-standing right hip pain aggravated by movement; denies radiating pain down the leg. - Gastrointestinal: Reports regular bowel habits. Physical exam (Primary Care) Vital Signs: Last Vital Signs Temp 97.4 F 07/27/25 14:45 Pulse 88 07/27/25 14:45 Resp 14 07/27/25 14:45 BP 123/70 07/27/25 14:45 Pulse Ox 98 07/27/25 14:45 Oxygen Delivery Method Room Air 07/27/25 14:45 BMI result Body Mass Index 31.1 Tobacco/Smoking Status: Tobacco use Status Tobacco use date assessed 02/02/25 07/27/25 14:47 Patient Tobacco Use Status Never used Tobacco 07/27/25 14:47 e-Cigarette/Vaping Use Never Used 07/27/25 14:47 PHQ-9: PHQ-9 Score PHQ-9: Total score 0 07/27/25 14:59 Thrive Assessment: Date of Thrive Assessment Date Thrive assessed 02/02/25 07/27/25 14:47 Currently or been in a relationship where the following occur: No concerns reported Narrative Physical Exam General: Appearance normal, both eyes and all related structures Nutritional Appearance: Well nourished Orientation/consciousness: Patient oriented x3 Limitations: Right hip pain Head: Normal to inspection Neck: Normal visual inspection Chest: Normal palpation of entire chest wall Respiratory: Normal respiratory effort Neurology: Patient oriented x3 Coding Level of Care Code Est Pt Level 4 (07060) Complex visit Add On G2211 Diagnoses Elevated cholesterol E78.00 Right hip pain M25.551 Assessment & Plan Assessment & Plan (1) Elevated cholesterol: Code(s): E78.00 - Pure hypercholesterolemia, unspecified Category: Medical Plan: as below (2) Right hip pain: Code(s): M25.551 - Pain in right hip Plan Plan - Fatigue: The patient's fatigue may be a side effect of medications. - Discontinue levocetirizine (Zyrtec) and monitor for improvement. - The apixaban and metoprolol will be continued as they are necessary for atrial fibrillation management. - Arthralgia of right hip: Refer to [facility] for further evaluation and management. - Labs: Order new fasting blood work, to include a check for inflammatory markers. - Follow-up: Schedule a return visit in 6 months. Discussion Notes I discussed with the patient that the reported fatigue is likely multifactorial but may be exacerbated by several current medications, including metoprolol, apixaban, and levocetirizine. We agreed to discontinue the levocetirizine to assess for any improvement in energy levels. Although the patient inquired about low testosterone, I explained it was an unlikely cause for the symptoms, and we agreed not to test for it at this time. I will order new fasting blood work, including inflammatory markers, to investigate for any underlying inflammation. For the chronic right hip pain, a referral will be placed to [facility] for evaluation. I instructed the patient to contact our office if they are not contacted by the referral department within one week. We will follow up in six months to review the patient's progress. Patient Instructions - Stop taking your allergy medicine, levocetirizine (Zyrtec), and see if your tiredness improves. - Go to the lab for a new blood test. - You must fast for this test, which means do not eat or drink anything after midnight the night before the test. - We will send a referral to an interior specialist for your right hip pain. - Please call our office if you do not hear from anyone to schedule this appointment within one week. - Please schedule a follow-up appointment in six months. Orders: Orders Complete Blood Count no Diff 07/27/25 E78.00 - Pure hypercholesterolemia, unspecified Lipid Panel 07/27/25 E78. - Pure hypercholesterolemia, unspecified Liver Panel 07/27/25 E78. - Pure hypercholesterolemia, unspecified Basic Metabolic Panel 07/27/25 E78.00 - Pure hypercholesterolemia, unspecified Prostate Specific Antigen Scr 07/27/25 E78.00 - Pure hypercholesterolemia, unspecified Thyroid Stimulating Hormone 07/27/25 E78.00 - Pure hypercholesterolemia, unspecified UA and rflx microscopic 07/27/25 E78.00 - Pure hypercholesterolemia, unspecified Referrals Orthopedics Referral M25.551 - Pain in right hip
[2025-07-27 14:45] VITALS: BP 123/70; PULSE 88; RESP 14; TEMP 36.3; O2SAT 98; BMI 31.1
--- OUTSIDE RECORDS SUMMARY | 2025-07-27 18:00 | XMS_ITS | Encounter Summary ---
Author Organization [facility] Address [address] [place] [address] Phone Care Team Providers Care Box Office Attendant Name Role Phone Mata Dennis MD Primary Care Provider Encounter Details Date Type Department Care Team (Latest Contact Info) Description 01/17/2019 Transcribe Orders [address] [address] Lashae Pichardo MD [address] [facility] [facility] [address] [place] [address] Fibrohistiocytic proliferation of the skin (Primary Dx) [...] 3:24 PM EDT) IGE 110 <=214 kU/L [facility] Blood 01/17/2019 3:24 PM EDT 01/17/2019 3:28 PM EDT us Lashae Pichardo MD LAB BLOOD BKR ORDER TIARA Final Result [facility] [address] [place] [address] * (ABNORMAL) CBC and differential (01/17/2019 3:24 PM EDT) WBC 6.89 3.40 - 11.20 K/uL [facility] RBC 4.36(L) 4.50 - 5.50 M/uL [facility] HGB 14.0 13.0 - 17.0 g/dL [facility] HCT 41.5 40.0 - 51.0 % [facility] PLT 200 130 - 400 K/uL [facility] MCV 95.2 79.0 - 98.0 fL [facility] MCH 32.1 27.0 - 34.8 pg [facility] MCHC 33.7 31.5 - 36.0 g/dL [facility] RDW 13.0 10.8 - 14.6 % [facility] MPV 11.1 9.4 - 12.4 fl [facility] NRBC 0.00 0.00 /100 WBCs [facility] ABSOLUTE NRBC 0.00 0.00 K/uL [facility] DIFF METHOD Auto [facility] NEUTS 49.4 45.30 - 77.70 % [facility] LYMPHS 38.8 12.30 - 39.70 % [facility] MONOS 8.9 4.10 - 12.80 % [facility] EOS 1.6 0 - 7.2 % [facility] BASOS 1.0 0 - 2.80 % [facility] Granulocytes, immature (%) 0.3 0.0 - 0.9 % [facility] ABSOLUTE NEUTS 3.41 1.40 - 7.70 K/uL [facility] ABSOLUTE LYMPHS 2.67 0.60 - 3.20 K/uL [facility] ABSOLUTE MONOS 0.61(H) 0.11 - 0.59 K/uL [facility] ABSOLUTE EOS 0.11 0.01 - 0.50 K/uL [facility] ABSOLUTE BASOS 0.07 0.00 - 0.08 K/uL [facility] Granulocytes, immature 0.02 0.00 - 0.05 K/uL [facility] Blood 01/17/2019 3:24 PM EDT 01/17/2019 3:28 PM EDT Lashae Pichardo MD LAB BLOOD BKR ORDER TIARA Final Result [facility] [address] [place] [address] documented in this encounter Visit Diagnoses Diagnosis Fibrohistiocytic proliferation of the skin- Primary Other specified disorder of skin documented in this encounter Care Teams Box Office Attendant Relationship Specialty Start Date End Date Mata Dennis MD [address] [place] [address] [place] [address] PCP - General Internal Medicine 01/17/19 documented as of this encounter Additional Source Comments The information contained in this document represents components of the legal health record. It is not the complete legal health record.[facility]
--- OUTSIDE RECORDS SUMMARY | 2025-07-27 18:00 | XMS_ITS | Clinical Summary ---
Author Organization [facility] Address [address] [place], [place] [id number] Phone Care Team Providers Care Hedge Fund Manager Name Role Phone Mata Dennis MD Primary [...] file Medical Devices Not on file Insurance [facility] POS O POS HMO POS [address] [place], [place] [address]O [place] [address] [place] [address] [place] [address] [place] [address] HMO POS [facility] Care Teams Hedge Fund Manager Relationship Specialty Start Date End Date Mata Dennis MD [address] [place] [address] [place] [address] PCP - General Internal Medicine 01/17/19 Additional Source Comments The information contained in this document represents components of the legal health record. It is not the complete legal health record.[facility]
== END 2025-07-27 15:53 | disposition home or self-care (01) ==
LOC: HO.HMCSH 14:42
PROVIDERS: PCP Internal Medicine; Visit Provider Internal Medicine
DX: E78.00 Pure hypercholesterolemia, unspecified (principal); M25.551 Pain in right hip

== ENCOUNTER 2025-08-25 09:04 | Outpatient (REF) | payer BC, SELFPAY ==
[2025-08-25 10:23] LABS: Appearance Urine Clear; Glucose Urine UA Negative (Negative); PH 5.0 (5.0-9.0); Specific Gravity - Urine 1.015 (1.005-1.025)
[2025-08-25 10:43] LABS: Hematocrit 41.1 % (42.0-52.0); Hemoglobin 14.0 g/dl (14.0-18.0); Mean Corpuscular HGB Conc 34.1 g/dl (31.0-36.0); Mean Corpuscular Hemoglobin 32.5 pg (27.0-33.0); Mean Corpuscular Volume 95.4 fL (80.0-98.0); NRBC Abs Auto 0.000 X10*3/uL (0.0-0.012); NRBC Pct Auto 0.0 /100WBC (0.0-0.2); Platelet Count 229 X10*3/uL (160-400); Red Blood Count 4.31 X10*6/uL (4.60-5.80); White Blood Count 6.4 X10*3/uL (4.8-10.8)
--- OUTSIDE RECORDS SUMMARY | 2025-08-25 11:18 | XMS_ITS | Patient Health Record ---
Author Organization [facility] Address [address] [place] [id number] Care Team Providers Care Potato Inspector Name Role Phone Jeannie (RETIRED) Mata LLAMAS Primary Care Provide r Ben Goodman [phone] Allergies Allergen (clinical drug ingredient) Drug/Non Drug [...] stop date) Never Smoker NA - NA Social History Drugs/Alcohol: Social Info Question Answer Notes Alcohol Screen Did you have a drink containing alcohol in the past year? Yes How often did you have a drink containing alcohol in the past year? 2 to 3 times a week (3 points) How many drinks did you have on a typical day when you were drinking in the past year? 3 or 4 drinks (1 point) How often did you have 6 or more drinks on one occasion in the past year? Less than monthly (1 point) Points 5 Interpretation Positive Tobacco Use: Social Info Question Answer Notes Tobacco Use/Smoking Patient is a nonsmoker Additional Details Category Social Info Options Details Miscellaneous: Marital status: Occupation: [employer]- [place] Section Notes: Nonsmoker; few beers every d ay Problems Problem Type SNOMED Code ICD Code Onset Dates Problem Status W/U Status Risk Notes Problem Screening for malignant neoplasm of colon (469495436) Encounter for screening for malignant neoplasm of colon (Z12.11) Active confirmed Problem Preprocedural examination (106381980924834) Preprocedural examination (Z01.818) Active confirmed Plan Of Treatment Future Test Test Name Order Date COLONOSCOPY 09/15/2020 Insurance Providers Payer Name Payer Address Payer Phone Subscriber Number Group Number Insured Name Patient Relationship to Insured Coverage Start Date Coverage End Date [facility] PROF[employer]AL CLAIMS [address] [place] [address] [id number] JOÃO GARCIA Self - patient is the insured Medical (General) History Medical History History ICD Code Hyperlipidemia Denies IN,DM,CVA,Lung disease,renal dise ase Neg colonoscopy in 1998, 2003, and 2009 except for hyperplastic polyps Surgical History Surgery Date(Month/Year) Shoulder surgery - bilateral Right knee surgery
--- OUTSIDE RECORDS SUMMARY | 2025-08-25 11:18 | XMS_ITS | Encounter Summary ---
Author Organization [facility] Address [address] [place] [address] Phone Care Team Providers Care Post Closing Specialist Name Role Phone Mata Dennis MD Primary Care Provider Encounter Details Date Type Department Care Team (Latest Contact Info) Description 01/17/2019 Transcribe Orders [address] [address] Lashae Pichardo MD [address] [facility] [address] [place] [address] Fibrohistiocytic proliferation of the skin (Primary Dx) [...] 3:24 PM EDT) IGE 110 <=214 kU/L [facility] Blood 01/17/2019 3:24 PM EDT 01/17/2019 3:28 PM EDT us Lashae Pichardo MD LAB BLOOD BKR ORDER TIARA Final Result [facility] [address] [place] [address] * (ABNORMAL) CBC and differential (01/17/2019 3:24 PM EDT) WBC 6.89 3.40 - 11.20 K/uL [facility] RBC 4.36(L) 4.50 - 5.50 M/uL [facility] HGB 14.0 13.0 - 17.0 g/dL [facility] HCT 41.5 40.0 - 51.0 % [facility] PLT 200 130 - 400 K/uL [facility] MCV 95.2 79.0 - 98.0 fL [facility] MCH 32.1 27.0 - 34.8 pg [facility] MCHC 33.7 31.5 - 36.0 g/dL [facility] RDW 13.0 10.8 - 14.6 % [facility] MPV 11.1 9.4 - 12.4 fl [facility] NRBC 0.00 0.00 /100 WBCs [facility] ABSOLUTE NRBC 0.00 0.00 K/uL [facility] DIFF METHOD Auto [facility] NEUTS 49.4 45.30 - 77.70 % [facility] LYMPHS 38.8 12.30 - 39.70 % [facility] MONOS 8.9 4.10 - 12.80 % [facility] EOS 1.6 0 - 7.2 % [facility] BASOS 1.0 0 - 2.80 % [facility] Granulocytes, immature (%) 0.3 0.0 - 0.9 % [facility] ABSOLUTE NEUTS 3.41 1.40 - 7.70 K/uL [facility] ABSOLUTE LYMPHS 2.67 0.60 - 3.20 K/uL [facility] ABSOLUTE MONOS 0.61(H) 0.11 - 0.59 K/uL [facility] ABSOLUTE EOS 0.11 0.01 - 0.50 K/uL [facility] ABSOLUTE BASOS 0.07 0.00 - 0.08 K/uL [facility] Granulocytes, immature 0.02 0.00 - 0.05 K/uL [facility] Blood 01/17/2019 3:24 PM EDT 01/17/2019 3:28 PM EDT Lashae Pichardo MD LAB BLOOD BKR ORDER TIARA Final Result [facility] [address] [place] [address] documented in this encounter Visit Diagnoses Diagnosis Fibrohistiocytic proliferation of the skin- Primary Other specified disorder of skin documented in this encounter Care Teams Post Closing Specialist Relationship Specialty Start Date End Date Mata Dennis MD [address] [place] [address] [place] [address] PCP - General Internal Medicine 01/17/19 documented as of this encounter Additional Source Comments The information contained in this document represents components of the legal health record. It is not the complete legal health record.[facility]
--- OUTSIDE RECORDS SUMMARY | 2025-08-25 11:18 | XMS_ITS | Clinical Summary ---
Author Organization [facility] Address [address] [place], [place] [id number] Phone Care Team Providers Care Nurse Ldr Name Role Phone Mata Dennis MD Primary [...] file Medical Devices Not on file Insurance [facility] POS O POS [place]MO [place] [address] [place] [address] [place] [address] [place] [place] [address] [place] [address] [place] [place] [address] [place] [address] [place] [address] HMO POS [facility] HMO POS [facility] POS Care Teams Nurse Ldr Relationship Specialty Start Date End Date Mata Dennis MD [address] [place] [address] [place] [address] PCP - General Internal Medicine 01/17/19 Additional Source Comments The information contained in this document represents components of the legal health record. It is not the complete legal health record.[facility]
[2025-08-25 11:22] LABS: Alanine Aminotransferase 25 U/L (0-40); Albumin Level 4.4 g/dL (3.5-5.0); Alkaline Phosphatase 86 U/L (39-117); Anion Gap 12 (12-20); Aspartate Amino Transferase 21 U/L (5-37); Blood Urea Nitrogen 13 mg/dL (9-16); Calcium 9.1 mg/dL (8.4-10.2); Carbon Dioxide 22 mmol/L (22-29); Chloride 111 mmol/L (96-108); Cholesterol 175 mg/dL (<200); Estimated Glomerular Filt Rate > 60; HDL Cholesterol 54 mg/dL (>40); Potassium 4.0 mmol/L (3.3-5.1); Sodium 141 mmol/L (135-145); Thyroid Stimulating Hormone 1.06 uIU/mL (0.32-4.0); Total Protein 7.2 g/dL (6.5-8.0); Triglycerides 137 mg/dL (<150)
== END 2025-08-25 09:05 | disposition home or self-care (01) ==
LOC: HO.HMGCLDS 09:04
PROVIDERS: PCP Internal Medicine; Visit Provider Internal Medicine
DX: E78.00 Pure hypercholesterolemia, unspecified (principal); Z12.5 Encounter for screening for malignant neoplasm of prostate
CPT/HCPCS: 36415; 80048; 80061; 80076; 81003; 84153; 84443; 85027